=== PATIENT | male | born 1945 | race African-American/Black ===

== ENCOUNTER 2019-02-21 10:20 | Outpatient (CLI) | payer MEDICARE | END 2019-02-21 10:21 | disposition critical access hospital (66) | LOC: EMS 10:20 | PROVIDERS: ATTEND Surgery | DX: R53.1 Weakness (principal); R50.9 Fever, unspecified | CPT/HCPCS: A0425; A0427 ==

== ENCOUNTER 2019-02-21 10:53 | Inpatient (IN) | payer MEDICARE, OTHER ==
[2019-02-21 11:46] LABS: BASOPHILS # (AUTO) 0.1 10^3/uL (0.0-0.1); BASOPHILS % (AUTO) 0.4 %; EOSINOPHILS % (AUTO) 0.1 %; HGB - HEMOGLOBIN 10.6 g/dL (14.0-18.0); LYMPHOCYTES # (AUTO) 0.7 10^3/uL (1.5-3.5); MEAN CORPUSCULAR HEMOGLOBIN 29.9 pg (27.0-31.0); MEAN CORPUSCULAR HGB CONC 32.5 g/dL (32.0-36.0); MEAN PLATELET VOLUME 8.8 fL (7.4-11.4); MONOCYTES # (AUTO) 1.7 10^3/uL (0.0-1.0); MONOCYTES % (AUTO) 12.1 %; NEUTROPHILS # (AUTO) 11.6 10^3/uL (1.5-6.6); NEUTROPHILS % (AUTO) 82.4 %; PLT - PLATELET COUNT 232 10^3/uL (130-450); RED BLOOD COUNT 3.54 10^6/uL (4.70-6.10); RED CELL DISTRIBUTION WIDTH 14.2 % (12.0-15.0)
[2019-02-21 12:04] LABS: DIFFERENTIAL COMMENT MANUAL=AUTO DIFF
[2019-02-21 12:19] LABS: ALBUMIN/GLOBULIN RATIO 0.7 (1.0-2.2); BILIRUBIN,TOTAL 1.1 mg/dL (0.2-1.0); CALCIUM 8.5 mg/dL (8.5-10.3); CREATININE 1.2 mg/dL (0.6-1.2); CRP - C-REACTIVE PROTEIN 25.4 mg/dL (0-1.0); TOTAL PROTEIN 7.6 g/dL (6.7-8.2)
[2019-02-21] MEDS ORDERED: VANCOMYCIN INJ 1.5 GM in SODIUM CHLORIDE 0.9% 500 ML IV STA (12:23)
[2019-02-21] MEDS ORDERED: CEFEPIME 2 GM in SODIUM CHLORIDE 0.9% MINIBAG 100 ML IV STA (12:23)
--- NOTE | 2019-02-21 12:26 | ED Physician Documentation ---
History of Present Illness - Stated complaint Stated Complaint: GENERAL WEAKNESS - Chief complaint Chief Complaint: General - History obtained from History obtained from: Patient - History of Present Illness Timing: Other (This is a 73-year-old gentleman with type 2 diabetes who for the last 3 days has felt generally ill with 2 episodes of vomiting and poor appetite. He is lost the ability to walk due to generalized weakness. He has some pain from the right foot and denies any significant neuropathy, but his exam would suggest otherwise.) Review of Systems Ten Systems: 10 systems reviewed and negative Constitutional: reports: Fever, Chills, Fatigue Cardiac: denies: Chest pain / pressure, Palpitations Respiratory: denies: Dyspnea, Cough GI: denies: Abdominal Pain PD PAST MEDICAL HISTORY - Past Medical History Past Medical History: Yes Endocrine/Autoimmune: Type 2 diabetes - Present Medications Home Medications: Ambulatory Orders Medication Instructions Recorded Confirmed Aspirin 81 mg PO DAILY 02/21/19 02/21/19 Atorvastatin Calcium 80 mg PO DAILY 02/21/19 02/21/19 Clopidogrel [Plavix] 75 mg PO DAILY 02/21/19 02/21/19 Insulin Glargine [Lantus Solostar] 35 units SUBQ DAILY 02/21/19 02/21/19 Lisinopril 20 mg PO DAILY 02/21/19 02/21/19 metFORMIN [Glucophage] 500 mg PO BIDWM 02/21/19 02/21/19 - Allergies Allergies/Adverse Reactions: Allergies Allergy/AdvReac Type Severity Reaction Status Date / Time No Known Drug Allergies Allergy Verified 02/21/19 11:03 - Social History Does the pt smoke?: No Does the pt drink ETOH?: No Does the pt have substance abuse?: No - Family History Family history: reports: Non contributory PD ED PE NORMAL - Vitals Vital signs reviewed: Yes - General General: Alert and oriented X 3, No acute distress - HEENT HEENT: PERRL, EOMI - Neck Neck: Supple, no meningeal sign, No bony TTP - Cardiac Cardiac: RRR, No murmur - Respiratory Respiratory: No respiratory distress, Clear bilaterally - Abdomen Abdomen: Normal bowel sounds, Soft, Non tender - Back Back: No CVA TTP, No spinal TTP - Derm Derm: Normal color, Warm and dry - Extremities Extremities: Other (There is a deep diabetic foot ulcer under the right first MTP that tracks down to bone on probing, culture was taken during exam.) - Neuro Neuro: Alert and oriented X 3, Normal speech - Psych Psych: Normal mood, Normal affect Results - Vitals Vitals: Vital Signs - 24 hr 02/21/19 11:00 Temperature 37.8 C H Heart Rate 78 Respiratory 18 Rate Blood Pressure 158/76 H O2 Saturation 99 Oxygen O2 Source Room air - Labs Labs: Laboratory Tests 02/21/19 02/21/19 02/21/19 11:39 11:39 11:39 WBC 14.0 H RBC 3.54 L Hgb 10.6 L Hct 32.6 L MCV 92.0 MCH 29.9 MCHC 32.5 RDW 14.2 Plt Count 232 MPV 8.8 Neut # (Auto) 11.6 H Lymph # (Auto) 0.7 L [place] # (Auto) 1.7 H Eos # (Auto) 0.0 Baso # (Auto) 0.1 Absolute Nucleated RBC 0.01 Band Neuts % (Manual) Not Reportable Abnorm Lymph % (Manual) Not Reportable Nucleated RBC % 0.0 Neutrophils # (Manual) Not Reportable Lymphocytes # (Manual) Not Reportable Monocytes # (Manual) Not Reportable Eosinophils # (Manual) Not Reportable Basophils # (Manual) Not Reportable Differential Comment MANUAL=AUTO DIFF WBC Morphology 2+ VACUOLATION ESR 97 H Sodium 136 Potassium 4.1 Chloride 99 L Carbon Dioxide 25 Anion Gap 12.0 BUN 22 H Creatinine 1.2 Estimated GFR (MDRD) 72 L Glucose 148 H Lactic Acid Calcium 8.5 Total Bilirubin 1.1 H AST 22 ALT 18 Alkaline Phosphatase 88 C-Reactive Protein 25.4 H Total Protein 7.6 Albumin 3.0 L Globulin 4.6 H Albumin/Globulin Ratio 0.7 L Lipase 19 L 02/21/19 11:39 WBC RBC Hgb Hct MCV MCH MCHC RDW Plt Count MPV Neut # (Auto) Lymph # (Auto) [place] # (Auto) Eos # (Auto) Baso # (Auto) Absolute Nucleated RBC Band Neuts % (Manual) Abnorm Lymph % (Manual) Nucleated RBC % Neutrophils # (Manual) Lymphocytes # (Manual) Monocytes # (Manual) Eosinophils # (Manual) Basophils # (Manual) Differential Comment WBC Morphology ESR Sodium Potassium Chloride Carbon Dioxide Anion Gap BUN Creatinine Estimated GFR (MDRD) Glucose Lactic Acid 0.9 Calcium Total Bilirubin AST ALT Alkaline Phosphatase C-Reactive Protein Total Protein Albumin Globulin Albumin/Globulin Ratio Lipase - Rads (name of study) R foot XR Radiology: EMP read contemporaneously (Small erosion of the lateral base of the proximal phalanx of the great toe concerning for osteomyelitis with prominent soft tissue ulceration there along the plantar surface) PD MEDICAL DECISION MAKING - ED course ED course: This 73-year-old gentleman with nonspecific complaints and a deep diabetic foot ulcer that is infected with some signs of sepsis. He was cultured up and given cefepime and vancomycin. Spoke with Dr. Sapp for consultation, orthopedic, at 12:[address] Sumner for admission at 12:29 PM. Departure - Departure Disposition: [facility] DC/Xfer Clinical Impression: Osteomyelitis of great toe of right foot Diabetic foot ulcer associated with type 2 diabetes mellitus Qualifiers: Diabetic foot ulcer location: midfoot Laterality: right Non-pressure ulcer stage: with necrosis of muscle Qualified Code(s): E11.621 - Type 2 diabetes mellitus with foot ulcer Condition: Serious
--- NOTE | 2019-02-21 12:46 | XRAY Report ---
Reason: foot infection under 1st MTP Procedure Date: 02/21/2019 Accession Number: [id number] / [id number] Procedure: XR - Foot 3 View RT CPT Code: FULL RESULT: EXAM: RIGHT FOOT RADIOGRAPHY EXAM DATE: 02/21/2019 12:22 PM. CLINICAL HISTORY: Right foot pain. COMPARISON: None. TECHNIQUE: 3 views. FINDINGS: Bones: No fracture is demonstrated. There is subtle cortical lucency at the lateral base of the proximal phalanx of the great toe raising suspicion for osteomyelitis. Joints: Minor degenerative changes are seen in the first MTP joint. Soft Tissues: Promin ulceration defect along the plantar base of the soft tissues overlying the first MTP joint is seen. Mild generalized soft tissue swelling is seen. IMPRESSION: Questionable small erosion at the lateral base of the proximal phalanx of the great toe concerning for osteomyelitis with overlying prominent soft tissue ulceration seen along the plantar surface. RADIA
[2019-02-21] MEDS ORDERED: ACETAMINOPHEN 325 MG TABLET PO PRN (12:52)
[2019-02-21] MEDS ORDERED: HYDROmorphone 1 MG/ML CARPUJECT IVP PRN (12:52)
[2019-02-21] MEDS ORDERED: PROCHLORPERAZINE 10 MG/2 ML VIAL IVP PRN (12:52)
[2019-02-21] MEDS ORDERED: VANCOMYCIN PER PHARMACY 100 GM in SODIUM CHLORIDE 0.9% 250 ML IV SCH (14:00)
[2019-02-21] MEDS: SODIUM CHLORIDE 0.9% 1,000 ML IV SCH (14:36)
[2019-02-21] MEDS: SODIUM CHLORIDE FLUSH 0.9% 10 ML SYRINGE IVP PRN (19:34)
--- NOTE | 2019-02-21 19:53 | HISTORY & PHYSICAL EXAMINATION ---
DATE OF SERVICE: 02/21/2019 Physician: Iram Sumner MD HISTORY OF PRESENT ILLNESS: This is a 73-year-old black male with a history of diabetes type 2, hypertension, hyperlipidemia and peripheral vascular disease for which he had a procedure "to open a blood vessel in his left leg" 2 years ago and is on aspirin and Plavix daily. The patient presented with 3 days of feeling generally ill, very weak and unable to get up. Two episodes of vomiting after having 2 days of poor appetite and for this presented to the emergency room. He was found to have a diabetic foot ulcer and the wound was drained by the emergency room doctor. Fluid samples were sent and there was note that the wound was already spread all the way to the bone. The patient is being admitted for treatment of diabetic foot ulcer and likely osteomyelitis. PAST MEDICAL HISTORY: Hypertension, hyperlipidemia, type 2 diabetes, peripheral vascular disease. REVIEW OF SYSTEMS: There was no fever or chills, just weakness. He had a diabetic foot ulcer in the past, which was slow to heel until the left foot was revascularized. He is compliant with his insulin and runs fingerstick glu of 100-120. A comprehensive review of systems was performed and the pertinent positives were listed, the rest are negative. MEDICATIONS 1. Aspirin 81 mg daily. 2. Lipitor 80 mg daily. 3. Plavix 75 mg daily. 4. Lantus insulin 35 units every evening. 5. Lisinopril 20 mg daily. 6. Metformin 500 mg b.i.d. ALLERGIES: NONE. SOCIAL HISTORY: The patient is a nonsmoker, drinks no alcohol, uses no illicit drugs. FAMILY HISTORY: No inherited diseases. PHYSICAL EXAMINATION GENERAL: Thin, elderly black male. He appears weak and tired but is in no acute distress. VITAL SIGNS: Blood pressure 140/64, pulse is 99 in sinus rhythm. He is febrile at 37.8 degrees C, room air saturation is 91 - 93%. HEENT: Reveals slightly dry oral mucosa. NECK: Without JVD. LUNGS: Clear. HEART: Vertically displaced PMI. No audible murmurs. ABDOMEN: Soft, nontender. EXTREMITIES: The feet are warm, in socks. NEUROLOGIC: There is abnormal sensation to light touch in the dorsum of both feet, otherwise grossly intact. IMAGING: The foot x-ray showed prominent ulceration defect along the plantar base of the soft tissues overlying the first MTP joint, mild generalized soft tissue swelling, concern for osteomyelitis is present. LABORATORY DATA: Sodium 136, potassium 4.1, BUN 22, creatinine 1.2, glucose 148. Lactic acid normal at 0.9, bilirubin 1.1 Normal liver tests. CRP elevated at 25. Albumin low at 3. White blood count elevated at 14 with a left shift, ESR elevated at 97, hemoglobin 10.6 with a normal MCV of 92, platelet count normal at 232. No EKG was done. IMPRESSION/DIAGNOSES: 1. Diabetic foot ulcer. 2. Osteomyelitis. 3. Diabetes type 2, with probable diabetic peripheral neuropathy. 4. Prerenal renal insufficiency (dehydration likely from fever and poor oral intake recently). 5. Hypertension. 6. Elevated cholesterol. 7. Anemia (possibly anemia of chronic disease). 8. PVD history. PLAN: Admit the patient to a medical/surgical bed. Obtain a foot MRI to establish definitive osteomyelitis, which will also direct the duration and type of treatment. Obtain blood cultures. The wound specimen fluid has been sent for cultures already. Begin empiric treatment for a diabetic foot infection to cover anaerobes, gram positives (skin organisms) and gram negatives (Psudomonas) using cefepime and vancomycin, following Vanco levels. Follow his CBC and ESR daily. Continue with his insulin dosing and begin sliding scale insulin coverage, fingerstick checks and a carb-controlled diet. Begin IV hydration for his prerenal azotemia, evidence of dehydration. Continue with his blood pressure medications and cholesterol medications. Continue with his aspirin, but stop the Plavix for possible orthopedic intervention such as bone biopsy or amputation. Evaluate the anemia with Iron panel and stool guiac, B12 and Folate levels. DEEP VENOUS THROMBOSIS PROPHYLAXIS: Pharmaceutical. CODE STATUS: FULL CODE. ATTESTATION: The patient is expected to be discharged and transferred to another facility within 96 hours: Yes. TD: 02/21/2019 18:59 [place]
--- NOTE | 2019-02-21 20:01 | MRI Report ---
Reason: Poss osteomyelitis of R toe/foot Procedure Date: 02/21/2019 Accession Number: [id number] / [id number] Procedure: MRI - Foot RT W/O CPT Code: FULL RESULT: EXAM: RIGHT FOREFOOT MRI WITHOUT CONTRAST EXAM DATE: 02/21/2019 07:21 PM. CLINICAL HISTORY: Poss osteomyelitis of R toe/foot. Right foot pain with open wound. Diabetic ulcer. COMPARISON: FOOT 3 VIEW RT 02/21/2019 12:22 PM. TECHNIQUE: Multiplanar, multisequence T1-weighted and fluid-sensitive sequences of the forefoot without contrast. Other: None. FINDINGS: Bones: Edema is noted at the base of the proximal phalanx of great toe STIR sequences. Diffuse edema seen of the medial great toe sesamoid coronal T2-weighted fat saturation sequence with corresponding decreased marrow signal sagittal T1-weighted sequence (sees image 5 series 501). Focal subcortical marrow decreased to signal 4 mm first metatarsal head sagittal T1 weighted sequence. Tendons: Great toe flexor tendon tenosynovitis at the level of the first metatarsal phalangeal joint. Musculature: Diffuse muscle atrophy with fatty replacement and diffuse edema. Other: Small fluid collection first metatarsal phalangeal joint. Ulceration plantar aspect of first metatarsophalangeal joint 2.2 cm in transverse dimension and 2.7 cm in AP dimension (image 20 series 901 and image 5 series 501). Cellulitis plantar aspect great toe. IMPRESSION: 1. Deep to the plantar forefoot ulceration is increased marrow signal on T2-weighted images and decreased marrow signal on T1 weighted images of the medial great toe sesamoid consistent with osteomyelitis. 2. Small first metatarsophalangeal joint fluid. 3. There is edema at the base of the proximal phalanx great toe without decreased marrow signal on the T1-weighted sequence to confirm osteomyelitis. RADIA
[2019-02-21] MEDS: FAMOTIDINE 20 MG TABLET PO SCH (21:33)
[2019-02-21] MEDS: SODIUM CHLORIDE FLUSH 0.9% 10 ML SYRINGE IVP SCH (21:33)
[2019-02-21] MEDS: INSULIN ASPART 300 UNIT/3 ML PEN SUBQ SCH (21:35)
[2019-02-21] MEDS: INSULIN GLARGINE 300 UNIT/3 ML PEN SUBQ SCH (21:36)
[2019-02-22] MEDS: SODIUM CHLORIDE 0.9% 1,000 ML IV SCH ×2 (00:32→13:26)
[2019-02-22] MEDS: SODIUM CHLORIDE FLUSH 0.9% 10 ML SYRINGE IVP SCH ×3 (00:34→21:29)
[2019-02-22] MEDS: VANCOMYCIN INJ 1 GM in SODIUM CHLORIDE 0.9% 250 ML IV SCH ×2 (01:37→14:07)
[2019-02-22 05:22] LABS: BASOPHILS % (AUTO) 0.2 %; EOSINOPHILS % (AUTO) 0.2 %; LYMPHOCYTES % (AUTO) 4.3 %; MEAN CORPUSCULAR HEMOGLOBIN 30.3 pg (27.0-31.0); MEAN CORPUSCULAR HGB CONC 33.1 g/dL (32.0-36.0); MEAN CORPUSCULAR VOLUME 91.5 fL (80.0-94.0); MEAN PLATELET VOLUME 8.7 fL (7.4-11.4); MONOCYTES % (AUTO) 12.4 %; NEUTROPHILS % (AUTO) 82.9 %; PLT - PLATELET COUNT 218 10^3/uL (130-450); RED BLOOD COUNT 3.32 10^6/uL (4.70-6.10); RED CELL DISTRIBUTION WIDTH 14.4 % (12.0-15.0); WHITE BLOOD COUNT 13.4 x10^3/uL (4.8-10.8)
[2019-02-22 05:24] LABS: ALBUMIN 2.5 g/dL (3.2-5.5); ALBUMIN/GLOBULIN RATIO 0.6 (1.0-2.2); BILIRUBIN,TOTAL 1.5 mg/dL (0.2-1.0); CALCIUM 8.1 mg/dL (8.5-10.3); CREATININE 1.1 mg/dL (0.6-1.2); TOTAL PROTEIN 6.9 g/dL (6.7-8.2)
[2019-02-22 05:32] LABS: ABNORMAL LYMPHS % (MANUAL) 0 %
[2019-02-22 05:58] LABS: BAND NEUTROPHILS % (MANUAL) 8 %; DIFFERENTIAL COMMENT MANUAL DIFFERENTIAL; LYMPHOCYTES # (MANUAL) 0.7 10^3/uL (1.5-3.5); LYMPHOCYTES % (MANUAL) 5 %; MONOCYTES # (MANUAL) 1.6 10^3/uL (0.0-1.0); NEUTROPHILS # (MANUAL) 11.1 10^3/uL (1.5-6.6); NEUTROPHILS % (MANUAL) 75 %; PLATELET ESTIMATE, MANUAL NORMAL (130-450,000) (NORMAL); RBC MORPHOLOGY (MULTIPLE) NORMAL APPEARANCE (NORMAL)
[2019-02-22 06:23] LABS: HB2 TOTAL 10.4 g/dL; HEMOGLOBIN A1C 0.72 g/dL; HEMOGLOBIN A1C % 8.5 % (4.6-6.2)
--- NOTE | 2019-02-22 08:22 | PROVIDER PROGRESS NOTE ---
Assessment/Plan - Problem List (1) Gram-positive cocci bacteremia Assessment/Plan: Today the blood cultures were reported as pos for GPC growing in the anaerobic bottle. He still had a fever at midnight. Will expand the iv antibiotics: continue Vanco, change Cefipime to Unasyn for anaerobic coverage. (2) Osteomyelitis of great toe of right foot Assessment/Plan: The MRI of R foot does confirm osteomyelitis. The WBC and ESR have improved since admission. He still had a fever at midnight. Await blood and wound culture final bacterial identification and sensitivities. Dr Sapp (Orthopedics) to see patient today for further advice and management. If surgery will be needed, he would wait several more days for the Plavix effect to dissipate. Plavix was stopped and not given yesterday. (3) Diabetic foot ulcer associated with type 2 diabetes mellitus Qualifiers: Diabetic foot ulcer location: midfoot Laterality: right Non-pressure ulcer stage: with necrosis of muscle Qualified Code(s): E11.621 - Type 2 diabetes mellitus with foot ulcer; L97.413 - Non-pressure chronic ulcer of right heel and midfoot with necrosis of muscle Assessment/Plan: The wound was imaged, is on the ball of his R foot. The MRI also reads that he has cellulitis around the osteo area. Continue with antibiotics and plan as in #1 and #2. (4) PVD (peripheral vascular disease) Assessment/Plan: The patient reported more details of the L leg PVD: he needed hyperbaric treatment and catheterization (with probable stenting, since he takes Plavix) to open a stenosis. Will evaluate leg arterial blood flow with Duplex Dopplers of both legs. (5) DM type 2 (diabetes mellitus, type 2) Assessment/Plan: His A1c is 8.5 indicating moderately-poor good glu control. He has neuropathy, by virtue of having no sensation of the large ulcer on the ball of his right foot. Continue with carb controlled diet, fingerstick glucose checks, sliding scale insulin coverage, Lantus insulin at his home dose. His Metformin is on hold while in the hospital, in case he needs imaging using contrast. (6) HTN (hypertension) Assessment/Plan: Continue with his home medications (7) Prerenal renal failure Assessment/Plan: The BMP results still show dehydration. Continue with his saline hydration, and he has better p.o. intake with no nausea since being admitted. Follow I's and O's. (8) Anemia Assessment/Plan: Await iron panel, guaiac stool, B12 and folate levels, replace if low Monitor CBC daily. - Current Meds Current Meds: Current Medications Generic Name Dose Route Start Last Admin Trade Name Freq PRN Reason Stop Dose Admin Acetaminophen 650 mg 02/21/19 12:52 02/22/19 00:32 Tylenol PO 650 mg Q4HR PRN Administration Pain 1 to 4 Famotidine 20 mg 02/21/19 21:00 02/21/19 21:33 Pepcid PO 20 mg BID WILD Administration Sodium Chloride 1,000 mls @ 100 mls/hr 02/21/19 13:00 02/22/19 03:10 Normal Saline 0.9% IV 100 mls/hr .Q10H WILD Infusion Vancomycin HCl 1 gm/ Sodium 250 mls @ 167 mls/hr 02/22/19 02:00 02/22/19 03:10 Chloride IV Infused Q12H WILD Infusion Insulin Aspart 1 - 5 unit 02/21/19 21:00 02/21/19 21:35 Novolog SUBQ 3 unit 0800,1200,1700,2100 WILD Administration Protocol Insulin Glargine 35 unit 02/21/19 21:00 02/21/19 21:36 Lantus Solostar SUBQ 35 unit QPM WILD Administration Sodium Chloride 10 ml 02/21/19 12:52 02/21/19 19:34 Normal Saline Flush 0.9% IVP 10 ml PRN PRN Administration NEEDED PER PROVIDER ORDERS Sodium Chloride 10 ml 02/21/19 17:00 02/22/19 00:34 Normal Saline Flush 0.9% IVP Not Given 0100,0900,1700 WILD - Lab Result Fish Bone Diagrams: 02/22/19 04:56 02/22/19 04:56 - Additional Planning My Orders: My Active Orders 02/21/19 12:52 Activity Orders [RC] Q2HR IO [RC] IOSHIFT Initiate Bowel Care Protocol [RC] .protocol Initiate Line Care Protocol [RC] QSHIFT Initiate Personal Care Protoco [RC] .protocol Oxygen Therapy [RC] Routine Telemetry (24 Hour) [RC] Q4HR Vital Signs [RC] 0800,1600,0000 Acetaminophen [Tylenol] 650 mg PO Q4HR PRN HYDROcod/ACETAM 5/325 [[place] 5/325] 1 tab PO Q4HR PRN HYDROmorphone INJ CARP [Dilaudid Inj Carp] 1 mg IVP Q2HR PRN Prochlorperazine Inj [Compazine Inj] 10 mg IVP Q6HR PRN Sodium Chloride Flush 0.9% [Normal Saline Flush 0.9%] 10 ml IVP PRN PRN Code Status [OTHERS] Routine Condition of Patient [OTHERS] Routine DVT Prophylaxis [OTHERS] Routine 02/21/19 12:54 Orthopedics Consult [CONS] Routine 02/21/19 13:00 Sodium Chloride 0.9% [Normal Saline 0.9%] 1,000 ml IV 100 mls/hr 02/21/19 15:24 Nutrition Consult [CONS] Routine 02/21/19 17:00 Sodium Chloride Flush 0.9% [Normal Saline Flush 0.9%] 10 ml IVP 0100,0900,1700 02/21/19 19:08 Blood Glucose Checks - Eating [RC] 0800,1200,1700,2100 Initiate Hypoglycemia Protocol [RC] .protocol 02/21/19 21:00 Famotidine [Pepcid] 20 mg PO BID Insulin Aspart [NovoLOG] 1 - 5 unit SUBQ 0800,1200,1700,2100 Insulin Glargine [Lantus Solostar] 35 unit SUBQ QPM 02/21/19 Lunch Carb-controlled Diet [DIET] 02/22/19 02:00 Vancomycin Inj [Vancomycin] 1 gm Sodium Chloride 0.9% [Normal Saline 0.9%] 250 ml IV Q12H 02/22/19 08:00 Multivitamin W/Minerals [Theragran M] 1 tab PO DAILYWM 02/22/19 09:00 Aspirin Chewable [St Wero Aspirin] 81 mg PO DAILY Atorvastatin [Lipitor] 80 mg PO DAILY Enoxaparin [Lovenox] 40 mg SUBQ DAILY Lisinopril [Zestril] 20 mg PO DAILY Polyethylene Glycol 3350 [Miralax] 17 gm PO DAILY cefTRIAXone [Rocephin] 2 gm Sodium Chloride 0.9% Minibag [Normal Saline 0.9% Minibag] 100 ml IV DAILY 02/23/19 05:00 CBC - COMP BLD CT W/AUTO DIFF [HEME] DAILYLAB CMP [COMPREHENSIVE METABOLIC PANEL] [CHEM] DAILYLAB ESR- ERYTHROCYTE SEDIMENT RATE [HEME] DAILYLAB 02/23/19 13:30 VANCOMYCIN TROUGH [CHEM] Timed 02/24/19 05:00 CBC - COMP BLD CT W/AUTO DIFF [HEME] DAILYLAB CMP [COMPREHENSIVE METABOLIC PANEL] [CHEM] DAILYLAB ESR- ERYTHROCYTE SEDIMENT RATE [HEME] DAILYLAB Subjective - Subjective Patient Reports: Feeling Better, Other (Has more energy and an appetite and no N/V, as at home for the past 2-3 days/) Objective Vital Signs: Vital Signs - 24 hr 02/21/19 02/21/19 02/21/19 11:00 13:57 15:49 Temperature 37.8 C H 37.3 C 37.8 C H Heart Rate 78 Heart Rate [ 99 102 H Brachial] Respiratory 18 14 20 Rate Blood Pressure 158/76 H Blood Pressure 140/64 H 144/69 H [Right Brachial artery] O2 Saturation 99 91 L 93 02/21/19 02/22/19 02/22/19 20:17 00:00 01:40 Temperature 37.5 C 37.8 C H 37.0 C Heart Rate Heart Rate [ 96 91 Brachial] Respiratory 20 18 Rate Blood Pressure Blood Pressure 150/72 H 134/60 H [Right Brachial artery] O2 Saturation 96 98 02/22/19 02/22/19 04:31 08:00 Temperature 36.6 C 36.8 C Heart Rate Heart Rate [ 74 87 Brachial] Respiratory 18 16 Rate Blood Pressure Blood Pressure 114/55 L 144/69 H [Right Brachial artery] O2 Saturation 100 90 L Oxygen O2 Source Room air I&O (Last 24 Hrs): Intake and Output Totals x24h 02/20/19 02/21/19 02/22/19 23:59 23:59 23:59 Intake Total 1440 355 Output Total 300 500 Balance 1140 -145 General: Other (The patient's room has an odor of anearobic infection.) HEENT: Atraumatic, Mucous membr. moist/pink Neck: Supple, No JVD Neuro: Other (Decreased sensation of dorsum of both feet demonstrated yesterday.) Cardiovascular: Regular rate, No murmurs Respiratory: No respiratory distress Abdomen: Soft Extremities: Other (Open wound on ball of R foot. Photos were taken last night, to document.) - Results Results: Laboratory Results WBC 13.4 x10^3/uL (4.8-10.8) H 02/22/19 04:56 RBC 3.32 10^6/uL (4.70-6.10) L 02/22/19 04:56 Hgb 10.0 g/dL (14.0-18.0) L 02/22/19 04:56 Hct 30.4 % (42.0-52.0) L 02/22/19 04:56 MCV 91.5 fL (80.0-94.0) 02/22/19 04:56 MCH 30.3 pg (27.0-31.0) 02/22/19 04:56 MCHC 33.1 g/dL (32.0-36.0) 02/22/19 04:56 RDW 14.4 % (12.0-15.0) 02/22/19 04:56 Plt Count 218 10^3/uL (130-450) 02/22/19 04:56 MPV 8.7 fL (7.4-11.4) 02/22/19 04:56 Neut # (Auto) Not Reportable 02/22/19 04:56 Lymph # (Auto) Not Reportable 02/22/19 04:56 [place] # (Auto) Not Reportable 02/22/19 04:56 Eos # (Auto) Not Reportable 02/22/19 04:56 Baso # (Auto) Not Reportable 02/22/19 04:56 Absolute Nucleated RBC Not Reportable 02/22/19 04:56 Total Counted 100 02/22/19 04:56 Band Neuts % (Manual) 8 % (0-10) 02/22/19 04:56 Abnorm Lymph % (Manual) 0 % 02/22/19 04:56 Nucleated RBC % Not Reportable 02/22/19 04:56 Neutrophils # (Manual) 11.1 10^3/uL (1.5-6.6) H 02/22/19 04:56 Lymphocytes # (Manual) 0.7 10^3/uL (1.5-3.5) L 02/22/19 04:56 Monocytes # (Manual) 1.6 10^3/uL (0.0-1.0) H 02/22/19 04:56 Eosinophils # (Manual) 0.0 10^3/uL (0-0.7) 02/22/19 04:56 Basophils # (Manual) 0.0 10^3/uL (0-0.1) 02/22/19 04:56 Differential Comment MANUAL DIFFERENTIAL 02/22/19 04:56 WBC Morphology 2+ VACUOLATION (NORMAL) 02/21/19 11:39 Platelet Estimate NORMAL (130-450,000) (NORMAL) 02/22/19 04:56 RBC Morph Micro Appear NORMAL APPEARANCE (NORMAL) 02/22/19 04:56 ESR 80 mm/Hr (0-20) H 02/22/19 04:56 Sodium 136 mmol/L (135-145) 02/22/19 04:56 Potassium 3.5 mmol/L (3.5-5.0) 02/22/19 04:56 Chloride 102 mmol/L (101-111) 02/22/19 04:56 Carbon Dioxide 25 mmol/L (21-32) 02/22/19 04:56 Anion Gap 9.0 (6-13) 02/22/19 04:56 BUN 23 mg/dL (6-20) H 02/22/19 04:56 Creatinine 1.1 mg/dL (0.6-1.2) 02/22/19 04:56 Estimated GFR (MDRD) 80 (>89) L 02/22/19 04:56 Glucose 140 mg/dL (70-100) H 02/22/19 04:56 POC Whole Bld Glucose 93 mg/dL (70 - 100) 02/22/19 07:45 Glycated Hemoglobin 8.5 % (4.6-6.2) H 02/22/19 04:56 Estim Average Glucose 197 (70-100) H 02/22/19 04:56 Lactic Acid 0.9 mmol/L (0.5-2.2) 02/21/19 11:39 Calcium 8.1 mg/dL (8.5-10.3) L 02/22/19 04:56 Total Bilirubin 1.5 mg/dL (0.2-1.0) H 02/22/19 04:56 AST 21 IU/L (10-42) 02/22/19 04:56 ALT 18 IU/L (10-60) 02/22/19 04:56 Alkaline Phosphatase 80 IU/L (42-121) 02/22/19 04:56 C-Reactive Protein 25.4 mg/dL (0-1.0) H 02/21/19 11:39 Total Protein 6.9 g/dL (6.7-8.2) 02/22/19 04:56 Albumin 2.5 g/dL (3.2-5.5) L 02/22/19 04:56 Globulin 4.4 g/dL (2.1-4.2) H 02/22/19 04:56 Albumin/Globulin Ratio 0.6 (1.0-2.2) L 02/22/19 04:56 Lipase 19 U/L (22-51) L 02/21/19 11:39
[2019-02-22] MEDS: POLYETHYLENE GLYCOL 3350 17 GM PACKET PO SCH (08:38)
[2019-02-22] MEDS: ASPIRIN CHEW 81 MG TABLET PO SCH (08:39)
[2019-02-22] MEDS: ATORVASTATIN 40 MG TABLET PO SCH (08:39)
[2019-02-22] MEDS: LISINOPRIL 20 MG TABLET PO SCH (08:39)
[2019-02-22] MEDS: ENOXAPARIN 40 MG/0.4 ML SYRINGE SUBQ SCH (08:39)
[2019-02-22] MEDS: FAMOTIDINE 20 MG TABLET PO SCH ×2 (08:39→21:23)
[2019-02-22] MEDS: INSULIN ASPART 300 UNIT/3 ML PEN SUBQ SCH ×4 (08:40→21:23)
[2019-02-22] MEDS: MULTIVITAMIN W/MINERALS TABLET PO SCH (08:48)
[2019-02-22] MEDS ORDERED: LISINOPRIL 20 MG TABLET PO SCH (09:00)
[2019-02-22] MEDS ORDERED: INSULIN GLARGINE 300 UNIT/3 ML PEN SUBQ SCH (09:00)
[2019-02-22] MEDS ORDERED: cefTRIAXone 2 GM in SODIUM CHLORIDE 0.9% MINIBAG 100 ML IV SCH (09:00)
[2019-02-22] MEDS ORDERED: AMPICILLIN/SULBACTAM 3 GM in SODIUM CHLORIDE 0.9% MINIBAG 100 ML IV SCH (12:00)
[2019-02-22] MEDS ORDERED: PIPERACILLIN/TAZOBACTAM 3.375 GM in SODIUM CHLORIDE 0.9% MINIBAG 100 ML IV SCH ×2 (12:00→14:00)
--- NOTE | 2019-02-22 14:10 | PROVIDER PROGRESS NOTE ---
Subjective - Prog Note Date Prog Note Date: 02/22/19 Prog Note Time: 14:08 - Subjective Pt reports feeling: Improved (Patient admitted from ED with an infected right plantar diabetic ulcer under first MTP joint and bacteremia for IV antibiotics, stabilization, and workup for possible osteomyelitis.) Objective - Vital Signs/Intake & Output Vital Signs: Vital Signs x48h Temp Pulse Resp BP Pulse Ox 02/22/19 08:00 36.8 C 87 16 144/69 H 90 L Intake & Output: Intake & Output 02/19/19 02/20/19 02/21/19 02/22/19 23:59 23:59 23:59 23:59 Intake Total 1440 2150 Output Total 300 500 Balance 1140 1650 - Lab Results Fish Bones: 02/22/19 04:56 02/22/19 04:56 Other Labs: Lab Results x24hrs 02/22/19 02/22/19 02/22/19 Range/Units 11:11 07:45 04:56 WBC (4.8-10.8) x10^3/uL RBC (4.70-6.10) 10^6/uL Hgb (14.0-18.0) g/dL Hct (42.0-52.0) % MCV (80.0-94.0) fL MCH (27.0-31.0) pg MCHC (32.0-36.0) g/dL RDW (12.0-15.0) % Plt Count (130-450) 10^3/uL MPV (7.4-11.4) fL Neut # (Auto) Lymph # (Auto) [place] # (Auto) Eos # (Auto) Baso # (Auto) Absolute Nucleated RBC Total Counted Band Neuts % (Manual) (0 - 10) % Abnorm Lymph % (Manual) % Nucleated RBC % Neutrophils # (Manual) (1.5-6.6) 10^3/uL Lymphocytes # (Manual) (1.5-3.5) 10^3/uL Monocytes # (Manual) (0.0-1.0) 10^3/uL Eosinophils # (Manual) (0-0.7) 10^3/uL Basophils # (Manual) (0-0.1) 10^3/uL Differential Comment Platelet Estimate (NORMAL) RBC Morph Micro Appear (NORMAL) ESR (0-20) mm/Hr Sodium (135-145) mmol/L Potassium (3.5-5.0) mmol/L Chloride (101-111) mmol/L Carbon Dioxide (21-32) mmol/L Anion Gap (6-13) BUN (6-20) mg/dL Creatinine (0.6-1.2) mg/dL Estimated GFR (MDRD) (>89) Glucose (70-100) mg/dL POC Whole Bld Glucose 168 H 93 (70 - 100) mg/dL Glycated Hemoglobin 8.5 H (4.6-6.2) % Estim Average Glucose 197 H (70-100) Calcium (8.5-10.3) mg/dL Total Bilirubin (0.2-1.0) mg/dL AST (10-42) IU/L ALT (10-60) IU/L Alkaline Phosphatase (42-121) IU/L Total Protein (6.7-8.2) g/dL Albumin (3.2-5.5) g/dL Globulin (2.1-4.2) g/dL Albumin/Globulin Ratio (1.0-2.2) 02/22/19 02/22/19 02/22/19 Range/Units 04:56 04:56 04:56 WBC 13.4 H (4.8-10.8) x10^3/uL RBC 3.32 L (4.70-6.10) 10^6/uL Hgb 10.0 L (14.0-18.0) g/dL Hct 30.4 L (42.0-52.0) % MCV 91.5 (80.0-94.0) fL MCH 30.3 (27.0-31.0) pg MCHC 33.1 (32.0-36.0) g/dL RDW 14.4 (12.0-15.0) % Plt Count 218 (130-450) 10^3/uL MPV 8.7 (7.4-11.4) fL Neut # (Auto) Not Reportable Lymph # (Auto) Not Reportable [place] # (Auto) Not Reportable Eos # (Auto) Not Reportable Baso # (Auto) Not Reportable Absolute Nucleated RBC Not Reportable Total Counted 100 Band Neuts % (Manual) 8 (0 - 10) % Abnorm Lymph % (Manual) 0 % Nucleated RBC % Not Reportable Neutrophils # (Manual) 11.1 H (1.5-6.6) 10^3/uL Lymphocytes # (Manual) 0.7 L (1.5-3.5) 10^3/uL Monocytes # (Manual) 1.6 H (0.0-1.0) 10^3/uL Eosinophils # (Manual) 0.0 (0-0.7) 10^3/uL Basophils # (Manual) 0.0 (0-0.1) 10^3/uL Differential Comment MANUAL DIFFERENTIAL Platelet Estimate NORMAL (130-450,000) (NORMAL) RBC Morph Micro Appear NORMAL APPEARANCE (NORMAL) ESR 80 H (0-20) mm/Hr Sodium 136 (135-145) mmol/L Potassium 3.5 (3.5-5.0) mmol/L Chloride 102 (101-111) mmol/L Carbon Dioxide 25 (21-32) mmol/L Anion Gap 9.0 (6-13) BUN 23 H (6-20) mg/dL Creatinine 1.1 (0.6-1.2) mg/dL Estimated GFR (MDRD) 80 L (>89) Glucose 140 H (70-100) mg/dL POC Whole Bld Glucose (70 - 100) mg/dL Glycated Hemoglobin (4.6-6.2) % Estim Average Glucose (70-100) Calcium 8.1 L (8.5-10.3) mg/dL Total Bilirubin 1.5 H (0.2-1.0) mg/dL AST 21 (10-42) IU/L ALT 18 (10-60) IU/L Alkaline Phosphatase 80 (42-121) IU/L Total Protein 6.9 (6.7-8.2) g/dL Albumin 2.5 L (3.2-5.5) g/dL Globulin 4.4 H (2.1-4.2) g/dL Albumin/Globulin Ratio 0.6 L (1.0-2.2) 02/21/19 02/21/19 02/21/19 Range/Units 22:24 20:50 16:51 WBC (4.8-10.8) x10^3/uL RBC (4.70-6.10) 10^6/uL Hgb (14.0-18.0) g/dL Hct (42.0-52.0) % MCV (80.0-94.0) fL MCH (27.0-31.0) pg MCHC (32.0-36.0) g/dL RDW (12.0-15.0) % Plt Count (130-450) 10^3/uL MPV (7.4-11.4) fL Neut # (Auto) Lymph # (Auto) [place] # (Auto) Eos # (Auto) Baso # (Auto) Absolute Nucleated RBC Total Counted Band Neuts % (Manual) (0 - 10) % Abnorm Lymph % (Manual) % Nucleated RBC % Neutrophils # (Manual) (1.5-6.6) 10^3/uL Lymphocytes # (Manual) (1.5-3.5) 10^3/uL Monocytes # (Manual) (0.0-1.0) 10^3/uL Eosinophils # (Manual) (0-0.7) 10^3/uL Basophils # (Manual) (0-0.1) 10^3/uL Differential Comment Platelet Estimate (NORMAL) RBC Morph Micro Appear (NORMAL) ESR (0-20) mm/Hr Sodium (135-145) mmol/L Potassium (3.5-5.0) mmol/L Chloride (101-111) mmol/L Carbon Dioxide (21-32) mmol/L Anion Gap (6-13) BUN (6-20) mg/dL Creatinine (0.6-1.2) mg/dL Estimated GFR (MDRD) (>89) Glucose (70-100) mg/dL POC Whole Bld Glucose 223 H 240 H 160 H (70 - 100) mg/dL Glycated Hemoglobin (4.6-6.2) % Estim Average Glucose (70-100) Calcium (8.5-10.3) mg/dL Total Bilirubin (0.2-1.0) mg/dL AST (10-42) IU/L ALT (10-60) IU/L Alkaline Phosphatase (42-121) IU/L Total Protein (6.7-8.2) g/dL Albumin (3.2-5.5) g/dL Globulin (2.1-4.2) g/dL Albumin/Globulin Ratio (1.0-2.2) - Diagnostic Imaging Diagnostic Imaging Comments: XR show evidence of probable osteomyelitis of the right first proximal phalanx MRI scan show evidence of osteomyelitis of the right first proximal phalanx and medial sesamoid bone. Assessment/Plan - Problem List (1) Osteomyelitis of great toe of right foot Impression: Diabetic plantar ulcer - infected and deep, now associated with osteomyelitis of first proximal phalanx of the great toe and medial sesamoid bone. Hx of similar condition of left foot that resolved with revascularization procedure done by Dr. Green of [facility] in 2017 plus hyperbaric oxygen x one month. Had beemn told that right side would likely require revascularization in the future. He has not followed up with Dr. Green in about 2 years. PLAN: Continue IV antibiotics and wound dressing changes to toe. Wound care nurse consult. CHYNA to right leg. Patient wishes reconsultation with vascular surgeon, preferably Dr. Green in [place], prior to any surgical procedure to his right great toe.
--- NOTE | 2019-02-22 15:17 | CONSULTATION NOTE ---
DATE OF SERVICE: 02/22/2019 Physician: Garo Sapp MD REFERRING PHYSICIAN: Rafael Mcneill MD, Emergency Room Department. CHIEF COMPLAINT: "My right foot is infected." HISTORY OF PRESENT ILLNESS: Chuy Walton is a 73-year-old black male diabetic, who was admitted fro m the Emergency Room last evening with an infected right plantar diabetic ulceration to his forefoot. On his admission, he was noted to be bacteremic as well. He was admitted for IV antibiotic treatme nt for his diabetic plantar ulceration as well as further workup for possible deeper involvement with osteomyelitis. In speaking with the patient today, he apparently has had an ulceration to the right plantar aspect o f his midfoot for some time. He has a rather dense peripheral neuropathy from his diabetes and has d eveloped this deep ulceration without any sensory feedback. Has been unable to treat this ulceration . Interestingly, he had a similar condition to his opposite left foot about 2 years ago. Apparently , he had ulcerations around his foot, both in the forefoot and hindfoot region and had some associate d osteomyelitis as well. He was treated by Dr. Green over at [facility], and had a revascularization pr ocedure done to the left lower extremity. With reperfusion of his left foot along with hyperbaric tr eatments, he was able to effectively resolve his foot ulcerations and per the patient, was also able to resolve his osteomyelitis without surgical intervention. It is his wish that he wants to have thi s done in a likewise fashion to his right leg. He, however, has not seen Dr. Green in the last sever al years with regard to either foot. He was told by Dr. Green; however, that the left side was worse than the right side in 2017, but that the right side would likely require revascularization in the f uture as well. PHYSICAL EXAMINATION: The patient's right foot was examined today. He has a rather deep ulceration with a visible plantar aspect of his first metatarsal seen in the depth of his wound. The wound itse lf; however, did not have a lot of necrotic tissue present. It appeared to be somewhat luna, but not necrotic. There was some odor noted from the wound though no gross purulence was noted. The patien t had active flexion and extension of the first metatarsophalangeal joint on command. Decreased sens ation noted throughout the right foot. No lymphangitis noted in the lower extremity. ADMISSION LABORATORY: Showed an elevated white count on admission with a white count of 14,000. Sed imentation rate was 97. C-reactive protein was elevated at greater than 25. Subsequent laboratory s howed a mild improvement with his white count dropping down to 13,400 and his sedimentation rate of 8 0 noted. IMAGES: Radiographic studies showed plain x-rays of the foot showing some evidence of some osteopeni a and erosions beginning at the lateral corner of the proximal phalanx of the great toe. MRI scan of the right foot, which confirms probable osteomyelitis involving the proximal phalanx of the great to e as well as probable involvement of the medial sesamoid. ASSESSMENT 1. Infected right diabetic plantar ulceration involving the right first metatarsophalangeal joint an d evidence of osteomyelitis involving the proximal phalanx and medial sesamoid. 2. Dense diabetic peripheral neuropathy involving both lower extremities. 3. Vascular insufficiencies in both lower extremities - the history of a revascularization procedure done on the left side in [address] Green of [facility] which did improve the perfusion of his left lo wer extremity and did eventually lead to healing of diabetic ulcerations of the left foot and ? resol ution of his osteomyelitis in the left foot without surgical debridement indicated. PLAN: I agree with the plan of IV antibiotics to cover the organisms obtained from cultures from his foot, as well as the positive blood cultures that were obtained from his admission draws. Discussio n with the patient indicates that he wishes to have a reconsultation with Dr. Green to consider revas cularization done to the right foot, before proceeding with any surgical intervention with regard to his right foot, namely probable toe amputation. He also will have an ankle-brachial index determined while on this hospitalization for additional information that can be provided to his Vascular surgeo n as they determine whether or not the revascularization procedure should be done prior to any surger y to the foot to increase the chances of surgical wound is healing and a better revascularization for antibiotic treatment of his osteomyelitis as well. TD: 02/22/2019 14:36
[2019-02-22] MEDS: SACCHAROMYCES BOULARDII 250 MG CAPSULE PO SCH (16:58)
[2019-02-22] MEDS: PIPERACILLIN/TAZOBACTAM 3.375 GM in SODIUM CHLORIDE 0.9% MINIBAG 100 ML IV SCH (18:25)
--- NOTE | 2019-02-22 20:09 | Ultrasound Report ---
Reason: New R foot ulcer, Hx of L leg revasculariation Procedure Date: 02/22/2019 Accession Number: [id number] / [id number] Procedure: US - Duplex Lwr Ext Arterial Bilat CPT Code: FULL RESULT: EXAM: Bilateral Lower Extremity Arterial Doppler Ultrasound EXAM DATE: 02/22/2019 05:58 PM. CLINICAL HISTORY: New right foot ulcer, history of left leg revascularization. COMPARISON: None. TECHNIQUE: Real-time sonographic vascular imaging was performed by the engineering patternmaker, utilizing color-flow, Doppler flow, and spectral analysis. Multiple credit and collections representative static images were saved for review. FINDINGS: Right Lower Extremity: FARMWORKER ANIMAL: PSV 141 cm/sec. B waveform. Prox SFA: PSV 134 cm/sec. B waveform. Mid SFA: PSV 154 cm/sec. T waveform. Dist SFA: PSV 245 cm/sec. T waveform. PFA: PSV 153 cm/sec, B waveform. Popliteal: PSV 81 cm/sec. T waveform. JESS: PSV 32 cm/sec. M waveform. EDUCATION ADMINISTRATIVE ASSISTANT: PSV 82 cm/sec. M waveform. Peroneal: PSV 120 cm/sec. M waveform. DPA: PSV 58 cm/sec. M waveform. Left Lower Extremity: FARMWORKER ANIMAL: PSV 139 cm/sec. B waveform. Prox SFA: PSV 154 cm/sec. T waveform. Mid SFA: PSV 148 cm/sec. T waveform. Dist SFA: PSV 215 cm/sec. T waveform. PFA: PSV 78 cm/sec. B Waveform. Popliteal: PSV 132 cm/sec. B waveform. JESS: PSV 103 cm/sec. B waveform. Prox EDUCATION ADMINISTRATIVE ASSISTANT: PSV 66 cm/sec. M waveform. Peroneal: Not seen. DPA: PSV 28 cm/sec. M waveform. IMPRESSION: Elevated peak systolic velocities seen at the bilateral distal superficial femoral arteries as seen with greater than 50% hemodynamically significant stenosis. See above. RADIA
[2019-02-22] MEDS: INSULIN GLARGINE 300 UNIT/3 ML PEN SUBQ SCH (21:25)
[2019-02-23] MEDS: PIPERACILLIN/TAZOBACTAM 3.375 GM in SODIUM CHLORIDE 0.9% MINIBAG 100 ML IV SCH ×3 (00:15→12:16)
[2019-02-23] MEDS: VANCOMYCIN INJ 1 GM in SODIUM CHLORIDE 0.9% 250 ML IV SCH ×2 (02:06→14:28)
[2019-02-23] MEDS: SODIUM CHLORIDE 0.9% 1,000 ML IV SCH ×3 (02:06→14:26)
[2019-02-23] MEDS: SODIUM CHLORIDE FLUSH 0.9% 10 ML SYRINGE IVP SCH ×3 (02:08→16:35)
[2019-02-23 05:36] LABS: BASOPHILS % (AUTO) 0.3 %; HGB - HEMOGLOBIN 9.4 g/dL (14.0-18.0); LYMPHOCYTES % (AUTO) 4.9 %; MEAN CORPUSCULAR HEMOGLOBIN 30.3 pg (27.0-31.0); MEAN CORPUSCULAR HGB CONC 33.1 g/dL (32.0-36.0); MEAN CORPUSCULAR VOLUME 91.5 fL (80.0-94.0); MEAN PLATELET VOLUME 8.9 fL (7.4-11.4); MONOCYTES % (AUTO) 11.8 %; PLT - PLATELET COUNT 228 10^3/uL (130-450); RED CELL DISTRIBUTION WIDTH 14.4 % (12.0-15.0); WHITE BLOOD COUNT 13.4 x10^3/uL (4.8-10.8)
[2019-02-23 05:40] LABS: % IRON SATURATION 9 % (20-50); IRON 13 ug/dL (45-182); TOTAL IRON BINDING CAPACITY 144 ug/dL (250-450); TRANSFERRIN 103 mg/dL (180-329)
[2019-02-23 05:58] LABS: ABNORMAL LYMPHS % (MANUAL) 0 %
[2019-02-23 06:10] LABS: BAND NEUTROPHILS % (MANUAL) 7 %; EOSINOPHILS # (MANUAL) 0.5 10^3/uL (0-0.7); LYMPHOCYTES # (MANUAL) 0.8 10^3/uL (1.5-3.5); LYMPHOCYTES % (MANUAL) 6 %; MONOCYTES # (MANUAL) 0.5 10^3/uL (0.0-1.0); NEUTROPHILS # (MANUAL) 11.5 10^3/uL (1.5-6.6); NEUTROPHILS % (MANUAL) 79 %; PLATELET ESTIMATE, MANUAL NORMAL (130-450,000) (NORMAL); RBC MORPHOLOGY (MULTIPLE) NORMAL APPEARANCE (NORMAL)
[2019-02-23 06:11] LABS: DIFFERENTIAL COMMENT MANUAL DIFFERENTIAL
[2019-02-23 06:15] LABS: ALBUMIN 2.3 g/dL (3.2-5.5); ALBUMIN/GLOBULIN RATIO 0.6 (1.0-2.2); CREATININE 1.2 mg/dL (0.6-1.2); TOTAL PROTEIN 6.3 g/dL (6.7-8.2)
[2019-02-23 06:41] LABS: FOLATE 18.18 ng/mL (5.90 - >24.8)
[2019-02-23] MEDS: INSULIN ASPART 300 UNIT/3 ML PEN SUBQ SCH ×4 (08:02→20:54)
[2019-02-23] MEDS: LISINOPRIL 20 MG TABLET PO SCH (08:58)
[2019-02-23] MEDS: POLYETHYLENE GLYCOL 3350 17 GM PACKET PO SCH (08:59)
[2019-02-23] MEDS: ENOXAPARIN 40 MG/0.4 ML SYRINGE SUBQ SCH (08:59)
[2019-02-23] MEDS: SACCHAROMYCES BOULARDII 250 MG CAPSULE PO SCH ×2 (08:59→16:35)
[2019-02-23] MEDS: ASPIRIN CHEW 81 MG TABLET PO SCH (08:59)
[2019-02-23] MEDS: ATORVASTATIN 40 MG TABLET PO SCH (08:59)
[2019-02-23] MEDS: FAMOTIDINE 20 MG TABLET PO SCH ×2 (08:59→20:51)
[2019-02-23] MEDS: MULTIVITAMIN W/MINERALS TABLET PO SCH (08:59)
--- NOTE | 2019-02-23 11:47 | PROVIDER PROGRESS NOTE ---
Assessment/Plan - Problem List (1) Staphylococcus aureus bacteremia Assessment/Plan: He spiked a fever last evening. The blood culture from the first day is growing staph aureus, sensitivities are pending. Will redraw blood cultures to assure they have no further bacterial growth. His iv antibiotics were adjusted yesterday: the hospital ran out of Unasyn and Zosyn needed to be substituted. He remains on iv Vanco, with serum Vanco troughs being monitored. (2) Pseudomonas aeruginosa infection Assessment/Plan: He spiked a fever last evening. The initial blood culture has returned showing Pseudomonas aeruginosa bacteremia Will redraw blood cultures to assure they have no further bacterial growth. His iv antibiotics were adjusted yesterday: the hospital ran out of Unasyn and Zosyn needed to be substituted. The Zosyn dose will be increased for Pseudomonas treatment. Will also add double antibiotic coverage for Pseudomonas bacteremia, using Levofloxacin 750 mg IV daily. (3) Osteomyelitis of great toe of right foot Assessment/Plan: The orthopedic surgeon, Dr. Sapp, plans to continue IV antibiotic treatment for several days before any orthopedic intervention is done, if any. Pending on the work-up for limb ischemia, the patient may need transfer to higher level of care for revascularization and surgical intervention there. (4) Diabetic foot ulcer associated with type 2 diabetes mellitus Qualifiers: Diabetic foot ulcer location: midfoot Laterality: right Non-pressure ulcer stage: with necrosis of muscle Qualified Code(s): E11.621 - Type 2 diabetes mellitus with foot ulcer; L97.413 - Non-pressure chronic ulcer of right heel and midfoot with necrosis of muscle Assessment/Plan: Patient describes no pain. Continue wound care as ordered by the orthopedic surgeon. Continue antibiotics as above. We will not order physical therapy yet, just out of bed to chair for meals and prn. (5) PVD (peripheral vascular disease) Assessment/Plan: The Duplex arterial Doppler revealed moderate disease of both lower extremities but was not specific for any focal stenosis. We will order an ankle-brachial index of the right leg to evaluate for ischemia. I plan on contacting Dr. Green, his vascular surgeon, at [facility], with all of these results and to discuss management, with question of possible transfer. (6) DM type 2 (diabetes mellitus, type 2) Assessment/Plan: Glu fingersticks are low. Will decrease the sq Lantus evening dose from 35 U to 20 U. Continue with carb controlled diet, fingerstick glucose checks, sliding scale insulin coverage. (7) HTN (hypertension) Assessment/Plan: BP is adequately controlled on current medications. (8) Anemia Qualifiers: Anemia type: iron deficiency Assessment/Plan: Lab tests show low iron stores and low iron saturation. His B12 and folate levels are adequate. We will start daily oral iron replacement. (9) Prerenal renal failure Assessment/Plan: Resolved and he remains on IV hydration. - Current Meds Current Meds: Current Medications Generic Name Dose Route Start Last Admin Trade Name Freq PRN Reason Stop Dose Admin Acetaminophen 650 mg 02/21/19 12:52 02/22/19 00:32 Tylenol PO 650 mg Q4HR PRN Administration Pain 1 to 4 Aspirin 81 mg 02/22/19 09:00 02/23/19 08:59 St Wero Aspirin PO 81 mg DAILY WILD Administration Atorvastatin Calcium 80 mg 02/22/19 09:00 02/23/19 08:59 Lipitor PO 80 mg DAILY WILD Administration Enoxaparin Sodium 40 mg 02/22/19 09:00 02/23/19 08:59 Lovenox SUBQ 40 mg DAILY WILD Administration Famotidine 20 mg 02/21/19 21:00 02/23/19 08:59 Pepcid PO 20 mg BID WILD Administration Sodium Chloride 1,000 mls @ 100 mls/hr 02/21/19 13:00 02/23/19 08:03 Normal Saline 0.9% IV Not Given .Q10H WILD Vancomycin HCl 1 gm/ Sodium 250 mls @ 167 mls/hr 02/22/19 02:00 02/23/19 03:36 Chloride IV Infused Q12H WILD Infusion Piperacillin Sod/Tazobactam 100 mls @ 200 mls/hr 02/22/19 18:00 02/23/19 07:20 Sod 3.375 gm/ Sodium Chloride IV Infused Q6H WILD Infusion Insulin Aspart 1 - 5 unit 02/21/19 21:00 02/23/19 08:02 Novolog SUBQ Not Given 0800,1200,1700,2100 [facility] Protocol Lisinopril 20 mg 02/22/19 09:00 02/23/19 08:58 Zestril PO 20 mg DAILY WILD Administration Multivitamins/Minerals 1 tab 02/22/19 08:00 02/23/19 08:59 Theragran M PO 1 tab DAILYWM WILD Administration Polyethylene Glycol 17 gm 02/22/19 09:00 02/23/19 08:59 Miralax PO 17 gm DAILY WILD Administration Saccharomyces Boulardii 250 mg 02/22/19 17:00 02/23/19 08:59 Florastor PO 250 mg BIDWM WILD Administration Sodium Chloride 10 ml 02/21/19 12:52 02/21/19 19:34 Normal Saline Flush 0.9% IVP 10 ml PRN PRN Administration NEEDED PER PROVIDER ORDERS Sodium Chloride 10 ml 02/21/19 17:00 02/23/19 09:00 Normal Saline Flush 0.9% IVP Not Given 0100,0900,1700 WILD - Lab Result Fish Bone Diagrams: 02/23/19 04:56 02/23/19 04:56 - Additional Planning My Orders: My Active Orders 02/22/19 17:00 Saccharomyces Boulardii [Florastor] 250 mg PO BIDWM 02/22/19 18:00 Piperacillin/Tazobactam [Zosyn] 3.375 gm Sodium Chloride 0.9% Minibag [Normal Saline 0.9% Minibag] 100 ml IV Q6H 02/23/19 09:00 Ankle Brachial Index [US] Routine 02/23/19 10:00 Ferrous Gluconate [Fergon] 324 mg PO DAILYWM 02/23/19 13:30 VANCOMYCIN TROUGH [CHEM] Timed 02/24/19 05:00 CBC - COMP BLD CT W/AUTO DIFF [HEME] DAILYLAB CMP [COMPREHENSIVE METABOLIC PANEL] [CHEM] DAILYLAB ESR- ERYTHROCYTE SEDIMENT RATE [HEME] DAILYLAB Objective Vital Signs: Vital Signs - 24 hr 02/22/19 02/22/19 02/23/19 16:51 23:00 00:00 Temperature 38.3 C H 36.7 C 37.4 C Heart Rate [ 110 H 84 Brachial] Respiratory 16 20 Rate Blood Pressure 150/68 H 115/56 L [Right Brachial artery] O2 Saturation 91 L 97 02/23/19 08:00 Temperature 37.2 C Heart Rate [ 91 Brachial] Respiratory 14 Rate Blood Pressure 130/62 [Right Brachial artery] O2 Saturation 97 Oxygen O2 Source Nasal cannula I&O (Last 24 Hrs): Intake and Output Totals x24h 02/21/19 02/22/19 02/23/19 23:59 23:59 23:59 Intake Total 1440 4233.333 1201.667 Output Total 300 1300 550 Balance 1140 2933.333 651.667 - Results Results: Laboratory Results WBC 13.4 x10^3/uL (4.8-10.8) H 02/23/19 04:56 RBC 3.10 10^6/uL (4.70-6.10) L 02/23/19 04:56 Hgb 9.4 g/dL (14.0-18.0) L 02/23/19 04:56 Hct 28.4 % (42.0-52.0) L 02/23/19 04:56 MCV 91.5 fL (80.0-94.0) 02/23/19 04:56 MCH 30.3 pg (27.0-31.0) 02/23/19 04:56 MCHC 33.1 g/dL (32.0-36.0) 02/23/19 04:56 RDW 14.4 % (12.0-15.0) 02/23/19 04:56 Plt Count 228 10^3/uL (130-450) 02/23/19 04:56 MPV 8.9 fL (7.4-11.4) 02/23/19 04:56 Neut # (Auto) Not Reportable 02/23/19 04:56 Lymph # (Auto) Not Reportable 02/23/19 04:56 [place] # (Auto) Not Reportable 02/23/19 04:56 Eos # (Auto) Not Reportable 02/23/19 04:56 Baso # (Auto) Not Reportable 02/23/19 04:56 Absolute Nucleated RBC Not Reportable 02/23/19 04:56 Total Counted 100 02/23/19 04:56 Band Neuts % (Manual) 7 % (0-10) 02/23/19 04:56 Abnorm Lymph % (Manual) 0 % 02/23/19 04:56 Nucleated RBC % Not Reportable 02/23/19 04:56 Neutrophils # (Manual) 11.5 10^3/uL (1.5-6.6) H 02/23/19 04:56 Lymphocytes # (Manual) 0.8 10^3/uL (1.5-3.5) L 02/23/19 04:56 Monocytes # (Manual) 0.5 10^3/uL (0.0-1.0) 02/23/19 04:56 Eosinophils # (Manual) 0.5 10^3/uL (0-0.7) 02/23/19 04:56 Basophils # (Manual) 0.0 10^3/uL (0-0.1) 02/23/19 04:56 Differential Comment MANUAL DIFFERENTIAL 02/23/19 04:56 WBC Morphology 2+ VACUOLATION (NORMAL) 02/21/19 11:39 Platelet Estimate NORMAL (130-450,000) (NORMAL) 02/23/19 04:56 RBC Morph Micro Appear NORMAL APPEARANCE (NORMAL) 02/23/19 04:56 ESR 76 mm/Hr (0-20) H 02/23/19 04:56 Sodium 140 mmol/L (135-145) 02/23/19 04:56 Potassium 3.4 mmol/L (3.5-5.0) L 02/23/19 04:56 Chloride 107 mmol/L (101-111) 02/23/19 04:56 Carbon Dioxide 24 mmol/L (21-32) 02/23/19 04:56 Anion Gap 9.0 (6-13) 02/23/19 04:56 BUN 17 mg/dL (6-20) 02/23/19 04:56 Creatinine 1.2 mg/dL (0.6-1.2) 02/23/19 04:56 Estimated GFR (MDRD) 72 (>89) L 02/23/19 04:56 Glucose 52 mg/dL (70-100) L* 02/23/19 04:56 POC Whole Bld Glucose 195 mg/dL (70 - 100) H 02/23/19 11:08 Glycated Hemoglobin 8.5 % (4.6-6.2) H 02/22/19 04:56 Estim Average Glucose 197 (70-100) H 02/22/19 04:56 Lactic Acid 0.9 mmol/L (0.5-2.2) 02/21/19 11:39 Calcium 8.0 mg/dL (8.5-10.3) L 02/23/19 04:56 Iron 13 ug/dL (45-182) L 02/23/19 04:56 TIBC 144 ug/dL (250-450) L 02/23/19 04:56 % Saturation 9 % (20-50) L 02/23/19 04:56 Transferrin 103 mg/dL (180-329) L 02/23/19 04:56 Total Bilirubin 1.0 mg/dL (0.2-1.0) 02/23/19 04:56 AST 26 IU/L (10-42) 02/23/19 04:56 ALT 21 IU/L (10-60) 02/23/19 04:56 Alkaline Phosphatase 86 IU/L (42-121) 02/23/19 04:56 C-Reactive Protein 25.4 mg/dL (0-1.0) H 02/21/19 11:39 Total Protein 6.3 g/dL (6.7-8.2) L 02/23/19 04:56 Albumin 2.3 g/dL (3.2-5.5) L 02/23/19 04:56 Globulin 4.0 g/dL (2.1-4.2) 02/23/19 04:56 Albumin/Globulin Ratio 0.6 (1.0-2.2) L 02/23/19 04:56 Lipase 19 U/L (22-51) L 02/21/19 11:39 Vitamin B12 798 pg/mL (180-914) 02/23/19 04:56 Folate 18.18 ng/mL (5.90 - >24.8) 02/23/19 04:56
[2019-02-23] MEDS: FERROUS GLUCONATE 324 MG TABLET PO SCH (12:16)
[2019-02-23 13:40] LABS: VANCOMYCIN,TROUGH 19.2 ug/mL (10.0-20.0)
[2019-02-23] MEDS: levoFLOXacin 750 MG/150 ML 750 MG/150 ML BAG IV SCH (16:25)
--- NOTE | 2019-02-23 16:31 | Ultrasound Report ---
Reason: R foot ulcer, evel for ischemia Procedure Date: 02/23/2019 Accession Number: [id number] / [id number] Procedure: US - Ankle Brachial Index CPT Code: FULL RESULT: EXAM: BILATERAL ANKLE/BRACHIAL INDEX EXAM DATE: 02/23/2019 03:46 PM. CLINICAL HISTORY: Right foot ulcer, evaluate for ischemia. COMPARISON: None. TECHNIQUE: A blood pressure cuff and pulse volume recording Doppler ultrasound was used to evaluate the arterial pressures in the arms and ankle. No images were acquired. FINDINGS: Velocities: Right: SMALL BUSINESS BANKING OFFICER: PSV 27 cm/sec, monophasic waveform. DPA: PSV 40 cm/sec, monophasic waveform. Left: SMALL BUSINESS BANKING OFFICER: PSV 48 cm/sec, monophasic waveform. DPA: PSV 32 cm/sec, monophasic waveform. Pressures: Brachial pressure: Right brachial artery: 131/61 mmHg Left brachial artery: 134/60 mmHg Right ankle: 88/59 mmHg Left ankle: Not registering after 3 attempts. Right CHYNA: 0.67. IMPRESSION: 1. Right ankle/brachial index: 0.67, abnormal. Moderate arterial disease. 2. Left ankle/brachial index: Could not be obtained. See above. ANKLE/BRACHIAL INDEX REFERENCE STANDARDS 1.0-1.4: Normal 0.90-0.99: Borderline < 0.9: Abnormal RADIA
[2019-02-23] MEDS: PIPERACILLIN/TAZOBACTAM 4.5 GM in SODIUM CHLORIDE 0.9% MINIBAG 100 ML IV SCH (18:30)
[2019-02-23] MEDS: INSULIN GLARGINE 300 UNIT/3 ML PEN SUBQ SCH (20:53)
[2019-02-24] MEDS: PIPERACILLIN/TAZOBACTAM 4.5 GM in SODIUM CHLORIDE 0.9% MINIBAG 100 ML IV SCH ×4 (00:38→18:29)
[2019-02-24] MEDS: VANCOMYCIN INJ 1 GM in SODIUM CHLORIDE 0.9% 250 ML IV SCH (01:50)
[2019-02-24] MEDS: SODIUM CHLORIDE FLUSH 0.9% 10 ML SYRINGE IVP SCH (02:04)
[2019-02-24] MEDS: HYDROcod/ACETAM 5/325 MG TABLET PO PRN ×2 (03:12→21:16)
[2019-02-24] MEDS: SODIUM CHLORIDE 0.9% 1,000 ML IV SCH (03:13)
[2019-02-24] MEDS ORDERED: NITROGLYCERIN 2% PASTE TOP ONE (04:00)
[2019-02-24 05:13] LABS: BASOPHILS % (AUTO) 0.4 %; EOSINOPHILS # (AUTO) 0.2 10^3/uL (0.0-0.7); EOSINOPHILS % (AUTO) 1.6 %; HGB - HEMOGLOBIN 9.1 g/dL (14.0-18.0); LYMPHOCYTES # (AUTO) 0.5 10^3/uL (1.5-3.5); LYMPHOCYTES % (AUTO) 3.7 %; MEAN CORPUSCULAR HEMOGLOBIN 30.3 pg (27.0-31.0); MEAN CORPUSCULAR HGB CONC 33.3 g/dL (32.0-36.0); MEAN CORPUSCULAR VOLUME 91.1 fL (80.0-94.0); MEAN PLATELET VOLUME 8.4 fL (7.4-11.4); MONOCYTES # (AUTO) 1.5 10^3/uL (0.0-1.0); MONOCYTES % (AUTO) 12.3 %; NEUTROPHILS # (AUTO) 9.9 10^3/uL (1.5-6.6); PLT - PLATELET COUNT 232 10^3/uL (130-450); RED BLOOD COUNT 3.02 10^6/uL (4.70-6.10); RED CELL DISTRIBUTION WIDTH 14.8 % (12.0-15.0); WHITE BLOOD COUNT 12.1 x10^3/uL (4.8-10.8)
[2019-02-24 05:28] LABS: ALBUMIN 2.2 g/dL (3.2-5.5); ALBUMIN/GLOBULIN RATIO 0.5 (1.0-2.2); BILIRUBIN,TOTAL 0.8 mg/dL (0.2-1.0); CALCIUM 7.8 mg/dL (8.5-10.3); CREATININE 1.2 mg/dL (0.6-1.2); TOTAL PROTEIN 6.4 g/dL (6.7-8.2)
[2019-02-24] MEDS: FERROUS GLUCONATE 324 MG TABLET PO SCH (08:16)
[2019-02-24] MEDS: SACCHAROMYCES BOULARDII 250 MG CAPSULE PO SCH ×2 (08:17→17:15)
[2019-02-24] MEDS: ASPIRIN CHEW 81 MG TABLET PO SCH (08:17)
[2019-02-24] MEDS: MULTIVITAMIN W/MINERALS TABLET PO SCH (08:17)
[2019-02-24] MEDS: FAMOTIDINE 20 MG TABLET PO SCH ×2 (08:18→21:16)
[2019-02-24] MEDS: ATORVASTATIN 40 MG TABLET PO SCH (08:18)
[2019-02-24] MEDS: POLYETHYLENE GLYCOL 3350 17 GM PACKET PO SCH (08:20)
[2019-02-24] MEDS: LISINOPRIL 20 MG TABLET PO SCH (08:22)
[2019-02-24] MEDS: INSULIN ASPART 300 UNIT/3 ML PEN SUBQ SCH ×4 (08:23→21:18)
[2019-02-24] MEDS: ENOXAPARIN 40 MG/0.4 ML SYRINGE SUBQ SCH (08:26)
--- NOTE | 2019-02-24 09:31 | PROVIDER PROGRESS NOTE ---
Assessment/Plan - Problem List (1) Staphylococcus aureus bacteremia Assessment/Plan: Per Pharmacy rec, his Vanco can be stopped, since Pip/Tazo covers this Staph aureus. Length of treatment will depend (partly) on wether he gets amputation of site of infection. Will obtain Echo to evaluate for endocarditis. (2) Pseudomonas aeruginosa infection Assessment/Plan: His antibiotics were changed yesterday to cover Pseudomonas: Zosyn dose increased and double coverage with Levofloxacin added. Length of treatment will depend (partly) on whether he gets amputation of site of infection. Will obtain Echo to evaluate for endocarditis. (3) Osteomyelitis of great toe of right foot Assessment/Plan: As in #1 and 2 The plan from Orthopedics is to await to see if he needs revascularization. If not, then the patient would be offered amputation of the bone or 4 weeks of iv antibiotics. He would then need a PICC line and arrangement for infusions. (4) Diabetic foot ulcer associated with type 2 diabetes mellitus Qualifiers: Diabetic foot ulcer location: midfoot Laterality: right Non-pressure ulcer stage: with necrosis of muscle Qualified Code(s): E11.621 - Type 2 diabetes mellitus with foot ulcer; L97.413 - Non-pressure chronic ulcer of right heel and midfoot with necrosis of muscle Assessment/Plan: As in # 1and 2 Wound dressings were ordered by Dr Sapp,Orthopedics (5) PVD (peripheral vascular disease) Assessment/Plan: He had L leg revasculariation [address] Jose Green, of [facility] and Vascular surgery at [facility]. I will discuss the patient's findings from duplex Doppler and CHYNA testing with his vascular surgeon, as requested by the patient and also recommended by the Orthopedist. Continue daily aspirin. Plavix was stopped at admission for anticipation of orthopedic surgery. He is now off of Plavix for 4 days. (6) DM type 2 (diabetes mellitus, type 2) Assessment/Plan: Continue carb controlled diet, the lower dose of Lantus (decreased from home dose of 35 units to 20 units, every night) and sliding scale insulin coverage for fingerstick glucose checks at mealtime and at bedtime (7) HTN (hypertension) Assessment/Plan: His BP was uncontrolled last night, the nursing resident evaluated him and felt that he had excessive volume replacement, and the IV saline was discontinued. He was also placed on a nitrates in order to help control his blood pressure, and all his prehospital medications have been continued. Will order an Echo to evaluate LV contractility (and for endocarditis), given the possibility of volume overload after 3 days of IV saline, and since BNP is midly elevated on this morning labs. (8) Iron deficiency anemia Assessment/Plan: Heme test of stool is still pending. Lab tests showed low iron stores and low iron saturation. His B12 and folate levels were adequate. Daily oral iron replacement started yesterday. (9) Prerenal renal failure Assessment/Plan: He presented with clinical dehydration on exam and reported 3 to 4 days of poor p.o. intake, anorexia related to feeling poorly with this infection. Renal failure resolved with several days of iv hydration. - Current Meds Current Meds: Current Medications Generic Name Dose Route Start Last Admin Trade Name Freq PRN Reason Stop Dose Admin Acetaminophen 650 mg 02/21/19 12:52 02/22/19 00:32 Tylenol PO 650 mg Q4HR PRN Administration Pain 1 to 4 Hydrocodone Bitart/Acetaminophen 1 tab 02/21/19 12:52 02/24/19 03:12 [place] 5/325 PO 1 tab Q4HR PRN Administration Pain 5 to 7 Aspirin 81 mg 02/22/19 09:00 02/24/19 08:17 St Wero Aspirin PO 81 mg DAILY WILD Administration Atorvastatin Calcium 80 mg 02/22/19 09:00 02/24/19 08:18 Lipitor PO 80 mg DAILY WILD Administration Enoxaparin Sodium 40 mg 02/22/19 09:00 02/24/19 08:26 Lovenox SUBQ 40 mg DAILY WILD Administration Famotidine 20 mg 02/21/19 21:00 02/24/19 08:18 Pepcid PO 20 mg BID WILD Administration Ferrous Gluconate 324 mg 02/23/19 10:00 02/24/19 08:16 Fergon PO 324 mg DAILYWM WILD Administration Vancomycin HCl 1 gm/ Sodium 250 mls @ 167 mls/hr 02/22/19 02:00 02/24/19 03:44 Chloride IV Infused Q12H WILD Infusion Levofloxacin 750 mg in 150 mls @ 100 mls/hr 02/23/19 16:00 02/23/19 18:27 Levaquin 750 Mg/150 Ml IV Infused Q24H WILD Infusion Piperacillin Sod/Tazobactam 100 mls @ 200 mls/hr 02/23/19 18:00 02/24/19 06:04 Sod 4.5 gm/ Sodium Chloride IV Infused Q6H WILD Infusion Insulin Aspart 1 - 5 unit 02/21/19 21:00 02/24/19 08:23 Novolog SUBQ 1 unit 0800,1200,1700,2100 WILD Administration Protocol Insulin Glargine 20 unit 02/23/19 21:00 02/23/19 20:53 Lantus Solostar SUBQ 20 unit QPM WILD Administration Lisinopril 20 mg 02/22/19 09:00 02/24/19 08:22 Zestril PO 20 mg DAILY WILD Administration Multivitamins/Minerals 1 tab 02/22/19 08:00 02/24/19 08:17 Theragran M PO 1 tab DAILYWM WILD Administration Polyethylene Glycol 17 gm 02/22/19 09:00 02/24/19 08:20 Miralax PO 17 gm DAILY WILD Administration Saccharomyces Boulardii 250 mg 02/22/19 17:00 02/24/19 08:17 Florastor PO 250 mg BIDWM WILD Administration Sodium Chloride 10 ml 02/21/19 12:52 02/21/19 19:34 Normal Saline Flush 0.9% IVP 10 ml PRN PRN Administration NEEDED PER PROVIDER ORDERS - Lab Result Fish Bone Diagrams: 02/24/19 04:50 02/24/19 04:50 - Additional Planning My Orders: My Active Orders 02/23/19 10:00 Ferrous Gluconate [Fergon] 324 mg PO DAILYWM 02/23/19 13:22 CULTURE, BLOOD #1 [RM] Stat 02/23/19 16:00 levoFLOXacin 750 MG/150 ML [Levaquin 750 mg/150 ml] 750 mg in 150 ml IV Q24H 02/23/19 18:00 Piperacillin/Tazobactam [Zosyn] 4.5 gm Sodium Chloride 0.9% Minibag [Normal Saline 0.9% Minibag] 100 ml IV Q6H 02/23/19 Dinner Carb-controlled Diet [DIET] 02/24/19 CULTURE, BLOOD #1 [RM] Urgent 02/24/19 07:33 Echo Transthoracic Complete [ECHO] Routine Subjective - Subjective Patient Reports: Feeling Better, Other (Still very weak, muscles feel "like they are not there".) Objective Vital Signs: Vital Signs - 24 hr 02/23/19 02/23/19 02/24/19 15:53 19:40 00:00 Temperature 37.3 C 37.3 C 37.5 C Heart Rate 93 Heart Rate [ 93 91 Brachial] Respiratory 18 18 16 Rate Blood Pressure 131/58 H 130/55 L [Right Brachial artery] O2 Saturation 96 96 95 02/24/19 02/24/19 02/24/19 03:00 04:38 05:35 Temperature 37.0 C Heart Rate Heart Rate [ 95 Brachial] Respiratory Rate Blood Pressure 161/74 H 142/62 H [Right Brachial artery] O2 Saturation 02/24/19 07:53 Temperature 36.7 C Heart Rate Heart Rate [ 82 Brachial] Respiratory 17 Rate Blood Pressure 149/67 H [Right Brachial artery] O2 Saturation 87 L Oxygen O2 Source Nasal cannula I&O (Last 24 Hrs): Intake and Output Totals x24h 02/22/19 02/23/19 02/24/19 23:59 23:59 23:59 Intake Total 4233.333 3891.667 1820 Output Total 1300 900 725 Balance 2933.333 2991.667 1095 General: Alert, Oriented x3 HEENT: Mucous membr. moist/pink Neck: Supple Neuro: Other (Sensory loss of dorsum of feet.) Cardiovascular: Regular rate, No murmurs Respiratory: No respiratory distress Abdomen: Soft Extremities: Other (R toe and distal foot bandaged.) - Results Results: Laboratory Results WBC 12.1 x10^3/uL (4.8-10.8) H 02/24/19 04:50 RBC 3.02 10^6/uL (4.70-6.10) L 02/24/19 04:50 Hgb 9.1 g/dL (14.0-18.0) L 02/24/19 04:50 Hct 27.5 % (42.0-52.0) L 02/24/19 04:50 MCV 91.1 fL (80.0-94.0) 02/24/19 04:50 MCH 30.3 pg (27.0-31.0) 02/24/19 04:50 MCHC 33.3 g/dL (32.0-36.0) 02/24/19 04:50 RDW 14.8 % (12.0-15.0) 02/24/19 04:50 Plt Count 232 10^3/uL (130-450) 02/24/19 04:50 MPV 8.4 fL (7.4-11.4) 02/24/19 04:50 Neut # (Auto) 9.9 10^3/uL (1.5-6.6) H 02/24/19 04:50 Lymph # (Auto) 0.5 10^3/uL (1.5-3.5) L 02/24/19 04:50 Power # (Auto) 1.5 10^3/uL (0.0-1.0) H 02/24/19 04:50 Eos # (Auto) 0.2 10^3/uL (0.0-0.7) 02/24/19 04:50 Baso # (Auto) 0.0 10^3/uL (0.0-0.1) 02/24/19 04:50 Absolute Nucleated RBC 0.00 x10^3/uL 02/24/19 04:50 Total Counted 100 02/23/19 04:56 Band Neuts % (Manual) 7 % (0-10) 02/23/19 04:56 Abnorm Lymph % (Manual) 0 % 02/23/19 04:56 Nucleated RBC % 0.0 /100WBC 02/24/19 04:50 Neutrophils # (Manual) 11.5 10^3/uL (1.5-6.6) H 02/23/19 04:56 Lymphocytes # (Manual) 0.8 10^3/uL (1.5-3.5) L 02/23/19 04:56 Monocytes # (Manual) 0.5 10^3/uL (0.0-1.0) 02/23/19 04:56 Eosinophils # (Manual) 0.5 10^3/uL (0-0.7) 02/23/19 04:56 Basophils # (Manual) 0.0 10^3/uL (0-0.1) 02/23/19 04:56 Differential Comment MANUAL DIFFERENTIAL 02/23/19 04:56 WBC Morphology 2+ VACUOLATION (NORMAL) 02/21/19 11:39 Platelet Estimate NORMAL (130-450,000) (NORMAL) 02/23/19 04:56 RBC Morph Micro Appear NORMAL APPEARANCE (NORMAL) 02/23/19 04:56 ESR 79 mm/Hr (0-20) H 02/24/19 04:50 Sodium 139 mmol/L (135-145) 02/24/19 04:50 Potassium 3.7 mmol/L (3.5-5.0) 02/24/19 04:50 Chloride 105 mmol/L (101-111) 02/24/19 04:50 Carbon Dioxide 24 mmol/L (21-32) 02/24/19 04:50 Anion Gap 10.0 (6-13) 02/24/19 04:50 BUN 13 mg/dL (6-20) 02/24/19 04:50 Creatinine 1.2 mg/dL (0.6-1.2) 02/24/19 04:50 Estimated GFR (MDRD) 72 (>89) L 02/24/19 04:50 Glucose 178 mg/dL (70-100) H 02/24/19 04:50 POC Whole Bld Glucose 145 mg/dL (70 - 100) H 02/24/19 07:55 Glycated Hemoglobin 8.5 % (4.6-6.2) H 02/22/19 04:56 Estim Average Glucose 197 (70-100) H 02/22/19 04:56 Lactic Acid 0.9 mmol/L (0.5-2.2) 02/21/19 11:39 Calcium 7.8 mg/dL (8.5-10.3) L 02/24/19 04:50 Iron 13 ug/dL (45-182) L 02/23/19 04:56 TIBC 144 ug/dL (250-450) L 02/23/19 04:56 % Saturation 9 % (20-50) L 02/23/19 04:56 Transferrin 103 mg/dL (180-329) L 02/23/19 04:56 Total Bilirubin 0.8 mg/dL (0.2-1.0) 02/24/19 04:50 AST 25 IU/L (10-42) 02/24/19 04:50 ALT 27 IU/L (10-60) 02/24/19 04:50 Alkaline Phosphatase 76 IU/L (42-121) 02/24/19 04:50 C-Reactive Protein 25.4 mg/dL (0-1.0) H 02/21/19 11:39 B-Natriuretic Peptide 693 pg/mL (5-100) H 02/24/19 04:50 Total Protein 6.4 g/dL (6.7-8.2) L 02/24/19 04:50 Albumin 2.2 g/dL (3.2-5.5) L 02/24/19 04:50 Globulin 4.2 g/dL (2.1-4.2) 02/24/19 04:50 Albumin/Globulin Ratio 0.5 (1.0-2.2) L 02/24/19 04:50 Lipase 19 U/L (22-51) L 02/21/19 11:39 Vitamin B12 798 pg/mL (180-914) 02/23/19 04:56 Folate 18.18 ng/mL (5.90 - >24.8) 02/23/19 04:56 Last Dose Date 02/23/19 02/23/19 13:22 Last Dose Time 03302/23/19 13:22 Vancomycin Trough 19.2 ug/mL (10.0-20.0) 02/23/19 13:22
[2019-02-24] MEDS: SODIUM CHLORIDE FLUSH 0.9% 10 ML SYRINGE IVP PRN ×2 (12:09→16:04)
--- NOTE | 2019-02-24 12:50 | PROVIDER PROGRESS NOTE ---
Subjective - Prog Note Date Prog Note Date: 02/24/19 Prog Note Time: 12:11 - Subjective Pt reports feeling: No change (Patient with no new complaints) Subjective: No new complaints Objective - Vital Signs/Intake & Output Vital Signs: Vital Signs x48h Temp Pulse Resp BP Pulse Ox 02/24/19 07:53 36.7 C 82 17 149/67 H 87 L 02/24/19 05:35 37.0 C 02/24/19 04:38 142/62 H Intake & Output: Intake & Output 02/21/19 02/22/19 02/23/19 02/24/19 23:59 23:59 23:59 23:59 Intake Total 1440 4233.333 3891.667 1920 Output Total 300 1300 900 725 Balance 1140 2933.333 2991.667 1195 - Lab Results Fish Bones: 02/24/19 04:50 02/24/19 04:50 Other Labs: Lab Results x24hrs 02/24/19 02/24/19 02/24/19 Range/Units 11:52 07:55 04:50 WBC (4.8-10.8) x10^3/uL RBC (4.70-6.10) 10^6/uL Hgb (14.0-18.0) g/dL Hct (42.0-52.0) % MCV (80.0-94.0) fL MCH (27.0-31.0) pg MCHC (32.0-36.0) g/dL RDW (12.0-15.0) % Plt Count (130-450) 10^3/uL MPV (7.4-11.4) fL Neut # (Auto) (1.5-6.6) 10^3/uL Lymph # (Auto) (1.5-3.5) 10^3/uL [place] # (Auto) (0.0-1.0) 10^3/uL Eos # (Auto) (0.0-0.7) 10^3/uL Baso # (Auto) (0.0-0.1) 10^3/uL Absolute Nucleated RBC x10^3/uL Nucleated RBC % /100WBC ESR (0-20) mm/Hr Sodium (135-145) mmol/L Potassium (3.5-5.0) mmol/L Chloride (101-111) mmol/L Carbon Dioxide (21-32) mmol/L Anion Gap (6-13) BUN (6-20) mg/dL Creatinine (0.6-1.2) mg/dL Estimated GFR (MDRD) (>89) Glucose (70-100) mg/dL POC Whole Bld Glucose 144 H 145 H (70 - 100) mg/dL Calcium (8.5-10.3) mg/dL Total Bilirubin (0.2-1.0) mg/dL AST (10-42) IU/L ALT (10-60) IU/L Alkaline Phosphatase (42-121) IU/L B-Natriuretic Peptide 693 H (5-100) pg/mL Total Protein (6.7-8.2) g/dL Albumin (3.2-5.5) g/dL Globulin (2.1-4.2) g/dL Albumin/Globulin Ratio (1.0-2.2) Last Dose Date Last Dose Time Vancomycin Trough (10.0-20.0) ug/mL 02/24/19 02/24/19 02/24/19 Range/Units 04:50 04:50 04:50 WBC 12.1 H (4.8-10.8) x10^3/uL RBC 3.02 L (4.70-6.10) 10^6/uL Hgb 9.1 L (14.0-18.0) g/dL Hct 27.5 L (42.0-52.0) % MCV 91.1 (80.0-94.0) fL MCH 30.3 (27.0-31.0) pg MCHC 33.3 (32.0-36.0) g/dL RDW 14.8 (12.0-15.0) % Plt Count 232 (130-450) 10^3/uL MPV 8.4 (7.4-11.4) fL Neut # (Auto) 9.9 H (1.5-6.6) 10^3/uL Lymph # (Auto) 0.5 L (1.5-3.5) 10^3/uL [place] # (Auto) 1.5 H (0.0-1.0) 10^3/uL Eos # (Auto) 0.2 (0.0-0.7) 10^3/uL Baso # (Auto) 0.0 (0.0-0.1) 10^3/uL Absolute Nucleated RBC 0.00 x10^3/uL Nucleated RBC % 0.0 /100WBC ESR 79 H (0-20) mm/Hr Sodium 139 (135-145) mmol/L Potassium 3.7 (3.5-5.0) mmol/L Chloride 105 (101-111) mmol/L Carbon Dioxide 24 (21-32) mmol/L Anion Gap 10.0 (6-13) BUN 13 (6-20) mg/dL Creatinine 1.2 (0.6-1.2) mg/dL Estimated GFR (MDRD) 72 L (>89) Glucose 178 H (70-100) mg/dL POC Whole Bld Glucose (70 - 100) mg/dL Calcium 7.8 L (8.5-10.3) mg/dL Total Bilirubin 0.8 (0.2-1.0) mg/dL AST 25 (10-42) IU/L ALT 27 (10-60) IU/L Alkaline Phosphatase 76 (42-121) IU/L B-Natriuretic Peptide (5-100) pg/mL Total Protein 6.4 L (6.7-8.2) g/dL Albumin 2.2 L (3.2-5.5) g/dL Globulin 4.2 (2.1-4.2) g/dL Albumin/Globulin Ratio 0.5 L (1.0-2.2) Last Dose Date Last Dose Time Vancomycin Trough (10.0-20.0) ug/mL 02/23/19 02/23/19 02/23/19 Range/Units 20:43 16:32 13:22 WBC (4.8-10.8) x10^3/uL RBC (4.70-6.10) 10^6/uL Hgb (14.0-18.0) g/dL Hct (42.0-52.0) % MCV (80.0-94.0) fL MCH (27.0-31.0) pg MCHC (32.0-36.0) g/dL RDW (12.0-15.0) % Plt Count (130-450) 10^3/uL MPV (7.4-11.4) fL Neut # (Auto) (1.5-6.6) 10^3/uL Lymph # (Auto) (1.5-3.5) 10^3/uL [place] # (Auto) (0.0-1.0) 10^3/uL Eos # (Auto) (0.0-0.7) 10^3/uL Baso # (Auto) (0.0-0.1) 10^3/uL Absolute Nucleated RBC x10^3/uL Nucleated RBC % /100WBC ESR (0-20) mm/Hr Sodium (135-145) mmol/L Potassium (3.5-5.0) mmol/L Chloride (101-111) mmol/L Carbon Dioxide (21-32) mmol/L Anion Gap (6-13) BUN (6-20) mg/dL Creatinine (0.6-1.2) mg/dL Estimated GFR (MDRD) (>89) Glucose (70-100) mg/dL POC Whole Bld Glucose 240 H 218 H (70 - 100) mg/dL Calcium (8.5-10.3) mg/dL Total Bilirubin (0.2-1.0) mg/dL AST (10-42) IU/L ALT (10-60) IU/L Alkaline Phosphatase (42-121) IU/L B-Natriuretic Peptide (5-100) pg/mL Total Protein (6.7-8.2) g/dL Albumin (3.2-5.5) g/dL Globulin (2.1-4.2) g/dL Albumin/Globulin Ratio (1.0-2.2) Last Dose Date 02/23/19 Last Dose Time 0336 Vancomycin Trough 19.2 (10.0-20.0) ug/mL 02/23/19 Range/Units 04:56 WBC (4.8-10.8) x10^3/uL RBC (4.70-6.10) 10^6/uL Hgb (14.0-18.0) g/dL Hct (42.0-52.0) % MCV (80.0-94.0) fL MCH (27.0-31.0) pg MCHC (32.0-36.0) g/dL RDW (12.0-15.0) % Plt Count (130-450) 10^3/uL MPV (7.4-11.4) fL Neut # (Auto) (1.5-6.6) 10^3/uL Lymph # (Auto) (1.5-3.5) 10^3/uL [place] # (Auto) (0.0-1.0) 10^3/uL Eos # (Auto) (0.0-0.7) 10^3/uL Baso # (Auto) (0.0-0.1) 10^3/uL Absolute Nucleated RBC x10^3/uL Nucleated RBC % /100WBC ESR (0-20) mm/Hr Sodium (135-145) mmol/L Potassium (3.5-5.0) mmol/L Chloride (101-111) mmol/L Carbon Dioxide (21-32) mmol/L Anion Gap (6-13) BUN (6-20) mg/dL Creatinine (0.6-1.2) mg/dL Estimated GFR (MDRD) (>89) Glucose 52 L* (70-100) mg/dL POC Whole Bld Glucose (70 - 100) mg/dL Calcium (8.5-10.3) mg/dL Total Bilirubin (0.2-1.0) mg/dL AST (10-42) IU/L ALT (10-60) IU/L Alkaline Phosphatase (42-121) IU/L B-Natriuretic Peptide (5-100) pg/mL Total Protein (6.7-8.2) g/dL Albumin (3.2-5.5) g/dL Globulin (2.1-4.2) g/dL Albumin/Globulin Ratio (1.0-2.2) Last Dose Date Last Dose Time Vancomycin Trough (10.0-20.0) ug/mL - Other Results/Comments Other Results/Comments: EXAM: No change in exam Assessment/Plan - Problem List (1) Osteomyelitis of great toe of right foot Impression: Stable PLAN: He wishes to have a vascular consultation with Dr. Green, prior to considering a toe amputation for treatment. If he is not a candidate for revascularization, he has indicated that he wants to try wound care and 6week course of IV antibiotics, prior to making a decision for partial ray amputation. He is aware that while on IV antibiotics, there would be a possibility of rec urring sepsis, but wants to give nonoperative treatment a chance, albeit a small chance.
[2019-02-24] MEDS: levoFLOXacin 750 MG/150 ML 750 MG/150 ML BAG IV SCH (16:01)
[2019-02-24] MEDS: INSULIN GLARGINE 300 UNIT/3 ML PEN SUBQ SCH (21:25)
[2019-02-25] MEDS: PIPERACILLIN/TAZOBACTAM 4.5 GM in SODIUM CHLORIDE 0.9% MINIBAG 100 ML IV SCH ×3 (01:01→13:33)
[2019-02-25] MEDS: SODIUM CHLORIDE FLUSH 0.9% 10 ML SYRINGE IVP PRN ×2 (01:02→09:05)
[2019-02-25 05:30] LABS: BASOPHILS % (AUTO) 0.3 %; EOSINOPHILS # (AUTO) 0.2 10^3/uL (0.0-0.7); EOSINOPHILS % (AUTO) 2.2 %; HGB - HEMOGLOBIN 9.2 g/dL (14.0-18.0); LYMPHOCYTES # (AUTO) 0.7 10^3/uL (1.5-3.5); LYMPHOCYTES % (AUTO) 5.9 %; MEAN CORPUSCULAR HEMOGLOBIN 30.2 pg (27.0-31.0); MEAN CORPUSCULAR HGB CONC 33.1 g/dL (32.0-36.0); MEAN CORPUSCULAR VOLUME 91.2 fL (80.0-94.0); MONOCYTES # (AUTO) 1.3 10^3/uL (0.0-1.0); MONOCYTES % (AUTO) 11.8 %; NEUTROPHILS # (AUTO) 8.9 10^3/uL (1.5-6.6); NEUTROPHILS % (AUTO) 79.8 %; PLT - PLATELET COUNT 260 10^3/uL (130-450); RED BLOOD COUNT 3.04 10^6/uL (4.70-6.10); RED CELL DISTRIBUTION WIDTH 14.7 % (12.0-15.0); WHITE BLOOD COUNT 11.2 x10^3/uL (4.8-10.8)
[2019-02-25 05:38] LABS: CALCIUM 8.4 mg/dL (8.5-10.3); CREATININE 1.1 mg/dL (0.6-1.2)
[2019-02-25] MEDS: INSULIN ASPART 300 UNIT/3 ML PEN SUBQ SCH ×2 (08:02→13:08)
[2019-02-25] MEDS: ENOXAPARIN 40 MG/0.4 ML SYRINGE SUBQ SCH (09:04)
[2019-02-25] MEDS: ATORVASTATIN 40 MG TABLET PO SCH (09:05)
[2019-02-25] MEDS: POLYETHYLENE GLYCOL 3350 17 GM PACKET PO SCH (09:05)
[2019-02-25] MEDS: FERROUS GLUCONATE 324 MG TABLET PO SCH (09:06)
[2019-02-25] MEDS: MULTIVITAMIN W/MINERALS TABLET PO SCH (09:06)
[2019-02-25] MEDS: FAMOTIDINE 20 MG TABLET PO SCH (09:06)
[2019-02-25] MEDS: SACCHAROMYCES BOULARDII 250 MG CAPSULE PO SCH (09:06)
[2019-02-25] MEDS: LISINOPRIL 20 MG TABLET PO SCH (09:07)
[2019-02-25] MEDS: ASPIRIN CHEW 81 MG TABLET PO SCH (09:12)
--- NOTE | 2019-02-25 11:45 | MISCELLANEOUS PROVIDER NOTE ---
Miscellaneous Provider Note - - Note: HPI: This is a 18-year-old black male with a history of diabetes type 2, hypertension, hyperlipidemia and peripheral vascular disease for which she had a procedure/angioplasty in [address] Jose Green from [facility] and subsequently did not follow-up postoperatively. He has been on aspirin and Plavix daily since. The patient presented with 3 days of feeling generally ill, very weak and unable to get up. 2 episodes of vomiting after having 2 days of poor appetite and for this presented to the emergency department. Patient was found to have diabetic foot ulcer and the wound was drained by the emergency room physician. Fluid samples were sent there and was noted that the wound was already spread all the way to the bone as per MRI study to indicate osteomyelitis. Subjective: Patient seen at bedside with no acute events. Objective: Hemodynamically stable. Afebrile. Blood pressure 140/60, RR 18, 96% O2 saturation on 2.5 L nasal cannula General: Patient nontoxic or ill-appearing. Alert and oriented x3 in no respir atory distress HEENT: No conjunctival pallor, no buccal lesions, no scleral icterus Neck: No JVD, no bruits CV/lungs: S1-S2 within normal limits, no murmurs, gallops, clicks, rubs. CTA BL Abdomen: Benign Extremities/skin: Right great toe base with nonnecrotic ulceration with some mild purulence, no evidence of gangrene or tissue edema surrounding with no necrotic borders. 0-1+ pedal edema to the right versus left. No cyanosis noted to digits. Mild pallor to plantar surfaces. No clubbing noted. No maculopapular rashes. Labs: Reviewed Imaging studies: 02/21/2019-MRI of the right forefoot without contrast shows Deep to plantar forefoot ulceration with increased marrow signaling on T2-weighted images and decreased marrow signaling on T1 weighted images of the medial great toe sesamoid consistent with osteomyelitis. Small first metatarsophalangeal joint fluid. There is edema at the base of the proximal phalanx great toe without decreased marrow signaling on the T1-weighted sequence to confirm osteomyelitis. 02/22/2019: Ultrasound duplex right lower extremity arterial, shows Elevated peak systolic velocity seen at the bilateral distal superficial femoral arteries as seen with greater than 50% hemodynamically significant stenosis. 02/23/2019: Bilateral ankle-brachial index shows right ankle-brachial index of 0.67, abnormal. Moderate arterial disease. Left ankle-brachial index could not be obtained. 02/24/2019: Echocardiogram shows a preserved ejection fraction Assessment/Plan - Problem List (1) Bacteremia Assessment/Plan: Per microbiology patient's 2 sets of blood cultures on 02/21/2019 shows Gemella Haemolysans, however the labeled [employer] ID shows G+ cocci in pairs/chains and Gemella is a Bacilli. Mainly found in oromucosa, GI tract, and humans and animals as well as an upper respiratory tract infections in cystic fibrosis patients. Of note the blood culture does not indicate that this is the same MSSA/Pseudomonas seen in patients right diabetic foot infection. In addition this is not a Staphylococcus, Grp A/B strept or enterococcus species. Patient blood cultures will be sent out. In the meantime patient will receive a PICC line and receive long-term IV antibiotics. This species of Gemella is usually sensitive to cephalosporins and penicillin. Currently in IV zosyn and Levaquin. Due to the concomitant osteomyelitis of the right great toe confirmed on MRI will received a total of 6 weeks of IV antibiotics. Echocardiogram does not show vegetations. Patient does not meet Martin minor/major criteria. Microbiology will send out blood cultures to confirm Gemella Haemolysans sp. Repeat blood culture on 02/23/2019 is negative growth to date. (2) Polymicrobial diabetic foot ulcer infection s/p I/D/D with Pseudomonas aeruginosa infection/MSSA Assessment/Plan: Continue with IV Levaquin/Zosyn. PICC line to be placed today. No evidence of same infection seeding the bloodstream. (3) Osteomyelitis of great toe of right foot Assessment/Plan: Discussion with orthopedic service on revascularization in the setting of active infection. However, deferred to primary vascular surgeon Dr. Jose Green who is currently on-call however has surgery all day. (4) Diabetic foot ulcer associated with type 2 diabetes mellitus Qualifiers: Diabetic foot ulcer location: midfoot Laterality: right Non-pressure ulcer stage: with necrosis of muscle Qualified Code(s): E11.621 - Type 2 diabetes mellitus with foot ulcer; L97.413 - Non-pressure chronic ulcer of right heel and midfoot with necrosis of muscle Assessment/Plan: Wound dressings ordered by orthopedic service. Official wound care consultation to be placed for further recommendations. Glycemic control. (5) Chronic PVD (peripheral vascular disease) Assessment/Plan: He had L leg revasculariation 2 years ago, [address] Jose Green, of [facility] and Vascular surgery at [facility]. Patient's Ultrasound duplex of the right lower extremity arterial, does have Elevated peak systolic velocities superficial femoral artery bilaterally to indicated HD significant >50% stenosis. In addition moderate arterial disease noted as evidenced by abnormaal CHYNA. In addition Plavix was stopped at admission for anticipation of orthopedic surgery. He is now off of Plavix for 4 days. (6) DM type 2 (diabetes mellitus, type 2) Assessment/Plan: Continue carb controlled diet, the lower dose of Lantus (decreased from home dose of 35 units to 20 units, every night) and sliding scale insulin coverage for fingerstick glucose checks at mealtime and at bedtime (7) HTN (hypertension) Assessment/Plan: His BP was uncontrolled last night, the service provider evaluated him and felt that he had excessive volume replacement, and the IV saline was discontinued. He was also placed on a nitrates in order to help control his blood pressure, and all his prehospital medications have been continued. Echocardiogram does not show evidence of vegetations, preserved ejection fractio n noted, given the possibility of volume overload after 3 days of IV saline mild elevation in BNP noted. (8) Iron deficiency anemia Assessment/Plan: Heme test of stool is still pending. Lab tests showed low iron stores and low iron saturation. His B12 and folate levels were adequate. Daily oral iron replacement started yesterday. (9) Prerenal renal failure on CKD Assessment/Plan: Unknown baseline. Patient's creatinine is 1.1 and has not gone above this. He presented with clinical dehydration on exam and reported 3 to 4 days of poor p.o. intake, anorexia related to feeling poorly with this infection. IV fluids have improved patient's renal perfusion.
--- NOTE | 2019-02-25 12:54 | DISCHARGE SUMMARY ---
"Discharge Summary Admit Date: 02/21/19 Discharge Date: 02/25/19 Discharging Provider: Dr. Peck Primary Care Provider: Sreedhar Neumann Code Status: Attempt Resuscitation Condition at Discharge: Good Discharge Disposition: 02 Transfer Acute Care Hosp Discharge Facility Name: [facility] - DIAGNOSES Admission Diagnoses: 1. Diabetic foot ulcer 2. Osteomyelitis 3. 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 Prerenal azotemia/renal insufficiency-chronic kidney disease 5. Hypertension 6. Hyperlipidemia 7. Anemia of chronic disease 8. Chronic Peripheral vascular disease Discharge Diagnoses with Status of Each Condition: (1) Bacteremia, Stable (2) Polymicrobial diabetic foot ulcer infection s/p I/D/D with Pseudomonas aeruginosa infection/MSSA, Stable (3) Osteomyelitis of great toe of right foot, Stable (4) Diabetic foot ulcer associated with type 2 diabetes mellitus, Stable (5) Chronic PVD (peripheral vascular disease), Progressive (6) DM type 2 (diabetes mellitus, type 2), Stable (7) HTN (hypertension), Stable (8) Hyperlipidemia, Stable (8) Iron deficiency anemia Superimposed on anemia of chronic disease, Stable (9) Prerenal renal failure on CKD, Stable - HPI History of Present Illness: This is a 18-year-old black male with a history of diabetes type 2, hypert ension, hyperlipidemia and peripheral vascular disease for which she had a procedure/angioplasty in [address] Jose Green from [facility] and subsequently did not follow-up postoperatively. He has been on aspirin and Plavix daily since. The patient presented with 3 days of feeling generally ill, very weak and unable to get up. 2 episodes of vomiting after having 2 days of poor appetite and for this presented to the emergency department. Patient was found to have diabetic foot ulcer and the wound was drained by the emergency room physician. Fluid samples were sent there and was noted that the wound was already spread all the way to the bone as per MRI study to indicate osteomyelitis. - CONSULTS | PROCEDURES Consultations: Wound care, Dr. Jose Green primary vascular and thoracic surgeon at [facility] Procedures: Status post incision drainage and debridement in the emergency department - HOSPITAL COURSE Hospital Course: Mr. Chuy Walton was admitted for osteomyelitis of the right great toe which was confirmed on MRI with associated reactive bone edema, has a history of underlying moderate peripheral vascular disease confirmed via CHYNA and Arterial duplex in addition was known to have a Pseudomonas and MSSA polymicrobial infection growing at the nonhealing right toe base ulcer with non-necrotic borders. Patient had Gemella Haemolysans 2/ blood cultures growing on 02/21 whic h did not represent the polymicrobial infection growing on 02/21 on wound cultures. This species is receptive to penicillin and cephalosporins. Patient was initially placed on vancomycin/cefepime and has transitionbed to IV Levaquin and Zosyn based on BRITTANY and sensitivities. Orthopedic service had seen patient and offered an amputation however patient deferred and will likely receive a total of 6 weeks of IV antibiotics as per guidelines. 1 of the unknown series at the 10/19 blood cultures initially read on CME as gram-positive cocci in pairs/chains however this is not a staph species nor group a or B strep nor is it and enterococcus via the Boosket nucleic acid test. Patient's appetite i mproved as well as his underlying chronic kidney disease with IV fluid resuscitation. Glycemic control was maintained. Patient wound care was ordered along with a PICC line. A repeat blood culture on 02/23 shows negative growth to date. Dr. Jose Green who is a primary vascular and thoracic surgeon at [facility] was contacted and recommended revascularization despite active osteomyelitis and nonhealing diabetic foot ulceration that appeared to be infected. Patient's echocardiogram did not show vegetations and patient lacked signs or symptoms of endocarditis or clinical signs such as [place] minor/major criteria for endocarditis. Patient has underlying chronic kidney disease with creatinine rang ing between 1.0 and 1.1 however unknown baseline. WBC on discharge was 11.2 which down trended from a 14.0 on admission. Patient's hemoglobin down trended from 10.6 on admission to 9.2 likely as a result of hemodilution. Patient had slightly elevated BNP as evidence from possible fluid or overload and was placed on 2.5 L nasal cannula which patient has improved oxygenation but does have desaturation events. Patient was accepted by primary vascular surgeon at [facility] and will be transferring hemodynamically stable with no evidence of persistent bacteremia. Patient's appetite had improved as well as his overall appearance to his right diabetic toe infected ulcer. - ALLERGIES Allergies/Adverse Reactions: Allergies Allergy/AdvReac Type Severity Reaction Status Date / Time No Known Drug Allergies Allergy Verified 02/21/19 11:03 - MEDICATIONS Home Medications: Ambulatory Orders Medication Instructions Recorded Confirmed Aspirin 81 mg PO DAILY 02/21/19 02/21/19 Atorvastatin Calcium 80 mg PO DAILY 02/21/19 02/21/19 Clopidogrel [Plavix] 75 mg PO DAILY 02/21/19 02/21/19 Insulin Glargine [Lantus Solostar] 22 units SUBQ DAILY 02/21/19 02/23/19 Lisinopril 20 mg PO DAILY 02/21/19 02/21/19 metFORMIN [Glucophage] 500 mg PO BIDWM 02/21/19 02/21/19 - PHYSICAL EXAM AT DISCHARGE General Appearance: positive: No acute distress, Alert Eyes Bilateral: positive: Normal inspection, PERRL, EOMI ENT: positive: ENT inspection nml, Pharynx nml, No signs of dehydration Neck: positive: Nml inspection, Thyroid nml, No JVD, Trachea midline Respiratory: positive: Chest non-tender, No respiratory distress, Breath sounds nml Cardiovascular: positive: Regular rate & rhythm, No murmur, No gallop Peripheral Pulses: positive: 0 (0-1+ dorsalis pedis to the right versus the left), Other (Abnormal CHYNA) Abdomen: positive: Non-tender, No organomegaly, Nml bowel sounds, No distention Skin: positive: Color nml, No rash, Warm, Pallor, Other (Nonnecrotic diabetic ulcer to the base of the right toe with some slough and tissue that is adherent to gauze.). negative: Cyanosis Extremities: positive: Non-tender, Full ROM, Other (Right diabetic toe ulcer). negative: Pedal edema Neurologic/Psychiatric: positive: Oriented x3, CN's nml (2-12), Motor nml - LABS Result Diagrams: 02/25/19 04:44 02/25/19 04:44 - DIAGNOSTIC IMAGING Diagnostic Imaging Results: Final report reviewed - FOLLOW UP Follow Up: To follow-up with PCP 2 to 3 weeks post hospital discharge. To follow-up with primary vascular surgeon as indicated. - TIME SPENT Time Spent in Discharge (Minutes): 35"
[2019-02-25] MEDS: levoFLOXacin 750 MG/150 ML 750 MG/150 ML BAG IV SCH (15:50)
[2019-02-25 15:55] VITALS: BP 164/86
== END 2019-02-25 16:42 | disposition short-term general hospital (02) | DRG 300 ==
LOC: EDUNIT# → ED 10:53 → MS3 12:45
PROVIDERS: ADMIT Internal Medicine; ATTEND Family Medicine
DX: E11.51 Type 2 diabetes mellitus with diabetic peripheral angiopathy without gangrene (principal); M86.8X7 Other osteomyelitis, ankle and foot; R78.81 Bacteremia; M86.9 Osteomyelitis, unspecified; L97.516 Non-pressure chronic ulcer of other part of right foot with bone involvement without evidence of necrosis; E11.621 Type 2 diabetes mellitus with foot ulcer; E11.69 Type 2 diabetes mellitus with other specified complication; I12.9 Hypertensive chronic kidney disease with stage 1 through stage 4 chronic kidney disease, or unspecified chronic kidney disease; E11.22 Type 2 diabetes mellitus with diabetic chronic kidney disease; N18.9 Chronic kidney disease, unspecified; D63.1 Anemia in chronic kidney disease; D50.9 Iron deficiency anemia, unspecified; E11.42 Type 2 diabetes mellitus with diabetic polyneuropathy; E11.628 Type 2 diabetes mellitus with other skin complications; L03.031 Cellulitis of right toe; E11.649 Type 2 diabetes mellitus with hypoglycemia without coma; E86.0 Dehydration; L97.519 Non-pressure chronic ulcer of other part of right foot with unspecified severity; B96.5 Pseudomonas (aeruginosa) (mallei) (pseudomallei) as the cause of diseases classified elsewhere; B95.61 Methicillin susceptible Staphylococcus aureus infection as the cause of diseases classified elsewhere; E78.5 Hyperlipidemia, unspecified; Z95.820 Peripheral vascular angioplasty status with implants and grafts; Z79.82 Long term (current) use of aspirin; Z79.02 Long term (current) use of antithrombotics/antiplatelets; Z79.4 Long term (current) use of insulin
CPT/HCPCS: 36415; 73630; 73718; 80048; 80053; 80202; 81599; 82607; 82746; 83036; 83540; 83605; 83690; 83880; 84466; 85025; 85651; 86140; 87040; 87070; 87181; 87205; 93306; 93922; 93925; 99283; 99284; A9270; J1650; J1815; J3370; 82272; 99281

== ENCOUNTER 2019-04-02 16:52 | Outpatient (CLI) | payer MEDICARE ==
[2019-04-02 19:54] LABS: BASOPHILS % (AUTO) 0.8 %; EOSINOPHILS # (AUTO) 0.4 10^3/uL (0.0-0.7); EOSINOPHILS % (AUTO) 6.9 %; HGB - HEMOGLOBIN 9.5 g/dL (14.0-18.0); LYMPHOCYTES # (AUTO) 1.1 10^3/uL (1.5-3.5); LYMPHOCYTES % (AUTO) 19.9 %; MEAN CORPUSCULAR HEMOGLOBIN 29.1 pg (27.0-31.0); MEAN CORPUSCULAR HGB CONC 31.4 g/dL (32.0-36.0); MEAN CORPUSCULAR VOLUME 92.7 fL (80.0-94.0); MEAN PLATELET VOLUME 11.2 fL (7.4-11.4); MONOCYTES # (AUTO) 0.7 10^3/uL (0.0-1.0); MONOCYTES % (AUTO) 12.2 %; NEUTROPHILS # (AUTO) 3.2 10^3/uL (1.5-6.6); PLT - PLATELET COUNT 222 10^3/uL (130-450); RED BLOOD COUNT 3.27 10^6/uL (4.70-6.10); RED CELL DISTRIBUTION WIDTH 15.4 % (12.0-15.0); WHITE BLOOD COUNT 5.3 x10^3/uL (4.8-10.8)
[2019-04-02 20:09] LABS: BUN - BLOOD UREA NITROGEN 22 mg/dL (6-20); CALCIUM 8.9 mg/dL (8.5-10.3); CARBON DIOXIDE - CO2 26 mmol/L (21-32); CHLORIDE 107 mmol/L (101-111); CREATININE 1.3 mg/dL (0.6-1.2); GFR - MDRD 66 (>89); GLUCOSE 123 mg/dL (70-100); SODIUM 141 mmol/L (135-145)
[2019-04-02 20:10] LABS: CRP - C-REACTIVE PROTEIN < 1.0 mg/dL (0-1.0)
== END 2019-04-02 23:59 | disposition home or self-care (01) ==
LOC: LAB.R 16:52
PROVIDERS: ATTEND Internal Medicine
DX: R78.81 Bacteremia (principal); M86.171 Other acute osteomyelitis, right ankle and foot
CPT/HCPCS: 80048; 85025; 85651; 86140

== ENCOUNTER 2022-04-01 03:36 | Outpatient (CLI) | payer MEDICARE | END 2022-04-01 03:37 | disposition critical access hospital (66) | LOC: EMS 03:36 | DX: E11.649 Type 2 diabetes mellitus with hypoglycemia without coma (principal) | CPT/HCPCS: A0425; A0429 ==

== ENCOUNTER 2024-05-04 14:32 | Outpatient (CLI) | payer MEDICARE | END 2024-05-04 23:59 | disposition left against medical advice (07) | LOC: EMS 14:32 | DX: Z03.89 Encounter for observation for other suspected diseases and conditions ruled out (principal) ==